=== PATIENT | male | born 1960 | race Hispanic/Latino ===

== ENCOUNTER 2019-06-04 01:36 | Emergency (ER) | payer SELFPAY ==
[2019-06-04] MEDS ORDERED: NA CHLORIDE 0.9% 1,000 ML ONE (03:30)
[2019-06-04 03:38] LABS: ALT/SGPT 53 U/L (12-78); AST/SGOT 31 U/L (15-37); Albumin 3.5 g/dL (3.4-5.0); Alkaline Phosphatase 126 U/L (45-117); BUN Blood Urea Nitrogen 9 mg/dL (7-18); Bicarbonate 27 mmol/L (21-32); Bilirubin Direct < 0.1 mg/dL (0-0.2); Bilirubin Total 0.4 mg/dL (0.2-1.0); Glucose Level 212 mg/dL (74-106); Lipase 76 U/L (73-393); Potassium 4.1 mmol/L (3.5-5.1); Protein, Total 6.7 g/dL (6.4-8.2); Sodium Level 139 mmol/L (136-145)
[2019-06-04 03:43] LABS: Absolute Lymphocytes (CBC) 2.9 K/uL (0.7-4.9); Basophils % 0.5 % (0-1.3); Hematocrit 42.5 % (39.6-49.0); Lymphocytes % 42.8 % (15.3-44.8); MPV 8.8 fL (7.6-11.3); RBC Red Blood Cell Count 4.57 M/uL (4.33-5.43)
--- NOTE | 2019-06-04 05:09 | EDPHYS ---
Physician Documentation [facility] Name: Carson Alvarenga Sr Age: 58 yrs Sex: Male : 1960 Arrival Date: 06/04/2019 Time: 02:27 Bed 2 Private MD: ED Physician Asael Bryan HPI: 06/04 03:13 This 58 yrs old Male presents to ER via Ambulatory with complaints of pkl Abdominal Pain. 03:13 The patient presents with abdominal pain in the upper abdomen. Onset: The pkl symptoms/episode began/occurred 3 week(s) ago. The symptoms do not radiate. Associated signs and symptoms: none. Historical: - Allergies: 02:48 No Known Allergies; bb - Home Meds: 02:48 metformin 500 mg Oral tab 1 tab 2 times per day [Active]; bb - PMHx: 02:48 Diabetes - NIDDM; bb - PSHx: 02:48 Appendectomy; Cholecystectomy; Cataract; bb - Immunization history:: Adult Immunizations up to date. - Social history:: Smoking status: Patient/guardian denies using tobacco, Patient uses alcohol, occasionally. - Ebola Screening: : No symptoms or risks identified at this time. ROS: 03:24 Eyes: Negative for injury, pain, redness, and discharge, ENT: Negative for injury, pkl pain, and discharge, Neck: Negative for injury, pain, and swelling, Cardiovascular: Negative for chest pain, palpitations, and edema, Respiratory: Negative for shortness of breath, cough, wheezing, and pleuritic chest pain. 03:24 Abdomen/GI: Positive for abdominal pain, of the right upper quadrant and left upper quadrant. 03:24 Back: Negative for acute changes. 03:24 : Negative for urinary symptoms. 03:24 MS/extremity: Negative for acute changes. 03:24 Skin: Negative for rash. 03:24 Neuro: Negative for altered mental status. Exam: 03:24 Head/Face: Normocephalic, atraumatic. Eyes: Pupils equal round and reactive to light, pkl extra-ocular motions intact. Lids and lashes normal. Conjunctiva and sclera are non-icteric and not injected. Cornea within normal limits. Periorbital areas with no swelling, redness, or edema. ENT: Nares patent. No nasal discharge, no septal abnormalities noted. Tympanic membranes are normal and external auditory canals are clear. Oropharynx with no redness, swelling, or masses, exudates, or evidence of obstruction, uvula midline. Mucous membranes moist. Neck: Trachea midline, no thyromegaly or masses palpated, and no cervical lymphadenopathy. Supple, full range of motion without nuchal rigidity, or vertebral point tenderness. No Meningismus. Chest/axilla: Normal chest wall appearance and motion. Nontender with no deformity. No lesions are appreciated. Cardiovascular: Regular rate and rhythm with a normal S1 and S2. No gallops, murmurs, or rubs. Normal PMI, no JVD. No pulse deficits. Respiratory: Lungs have equal breath sounds bilaterally, clear to auscultation and percussion. No rales, rhonchi or wheezes noted. No increased work of breathing, no retractions or nasal flaring. 03:24 Abdomen/GI: Bowel sounds: normal, Palpation: soft, mild abdominal tenderness, in the right upper quadrant and left upper quadrant. 03:24 Back: Exam negative for acute changes. 03:24 : Exam negative for acute changes. 03:24 Musculoskeletal/extremity: Exam is negative for acute changes. 03:24 Skin: Exam negative for rash. 03:24 Neuro: Orientation: is normal, Mentation: is normal, Cranial nerves: grossly normal, Motor: is normal. Vital Signs: 02:48 BP 139 / 78; Pulse 61; Resp 16 S; Temp 98.2(O); Pulse Ox 97% on R/A; Weight 84.82 kg bb (R); Height 5 ft. 8 in. (172.72 cm) (R); Pain 4/10; 03:30 BP 120 / 76; Pulse 59; Resp 18; Pulse Ox 98% on R/A; ea 04:38 BP 142 / 74; Pulse 60; Resp 18; Pulse Ox 98% on R/A; ea 05:30 BP 132 / 70; Pulse 60; Resp 18; Temp 97.6; Pulse Ox 98% on R/A; ea 02:48 Body Mass Index 28.43 (84.82 kg, 172.72 cm) bb MDM: 02:45 Patient medically screened. pkl 05:06 Data reviewed: vital signs, nurses notes, lab test result(s), radiologic studies, CT pkl scan. 06/04 02:55 Order name: Basic Metabolic Panel; Complete Time: 05:04 pkl 06/04 02:55 Order name: CBC with Diff; Complete Time: 05:04 pkl 06/04 02:55 Order name: Creatinine for Radiology; Complete Time: 05:04 pkl 06/04 02:55 Order name: Hepatic Function; Complete Time: 05:04 pkl 06/04 02:55 Order name: Lipase; Complete Time: 05:04 pkl 06/04 02:55 Order name: CT Abd/Pelvis - IV Contrast Only pkl 06/04 02:55 Order name: IV Saline Lock; Complete Time: 03:14 pkl 06/04 02:55 Order name: Labs collected and sent; Complete Time: 03:14 pkl Administered Medications: 03:32 Drug: NS 0.9% 1000 ml Route: IV; Rate: 125 ml/hr; Site: right antecubital; ea 05:33 Follow up: Response: No adverse reaction; IV Status: Completed infusion; IV Intake: ea 300ml 05:26 Drug: Tylenol #3 (300 mg-30 mg) 1 tablet {Note: RASS 0.} Route: PO; ea 05:34 Follow up: Response: No adverse reaction; RASS: Alert and Calm (0) ea Disposition: 06/04/19 05:07 Discharged to Home. Impression: Abdominal pain. - Condition is Stable. - Prescriptions for Protonix 40 mg Oral Tablet, Delayed Release (E.C.) - take 1 tablet by ORAL route once daily; 15 tablet. - Medication Reconciliation Form, Thank You Letter, Antibiotic Education, Prescription Opioid Use, Work release form form. - Follow up: Private Physician; When: 2 - 3 days; Reason: Re-evaluation by your physician. - Problem is new. - Symptoms have improved. Signatures: Dispatcher [employer] EDMS Asael Bryan MD MD pkl Ballard, Brenda RN RN Liz Jean, RN RN lp1 Stephanie Shelton RN RN ea Corrections: (The following items were deleted from the chart) 05:33 05:07 06/04/2019 05:07 Discharged to Home. Impression: Abdominal pain. Condition is ea Stable. Forms are Medication Reconciliation Form, Thank You Letter, Antibiotic Education, Prescription Opioid Use. Follow up: Private Physician; When: 2 - 3 days; Reason: Re-evaluation by your physician. Problem is new. Symptoms have improved. pkl
--- NOTE | 2019-06-04 05:09 | ER ---
Nurse's Notes [facility] Name: Carson Alvarenga Sr Age: 58 yrs Sex: Male : 1960 Arrival Date: 06/04/2019 Time: 02:27 Bed 2 Private MD: Diagnosis: Abdominal pain Presentation: 06/04 02:46 Presenting complaint: Patient states: he has been having right sided abdominal pain for bb 3 weeks denies vomiting or diarrhea states when he is sitting his abdomen "feels full" pain is constant and currently is 4/10 states he came in this morning because he can't sleep. Transition of care: patient was not received from another setting of care. Onset of symptoms was May 2019. Risk Assessment: Do you want to hurt yourself or someone else? Patient reports no desire to harm self or others. Initial Sepsis Screen: Does the patient meet any 2 criteria? No. Patient's initial sepsis screen is negative. Does the patient have a suspected source of infection? No. Patient's initial sepsis screen is negative. Care prior to arrival: None. 02:46 Method Of Arrival: Ambulatory bb 02:46 Acuity: TRINIDAD 3 bb Historical: - Allergies: 02:48 No Known Allergies; bb - Home Meds: 02:48 metformin 500 mg Oral tab 1 tab 2 times per day [Active]; bb - PMHx: 02:48 Diabetes - NIDDM; bb - PSHx: 02:48 Appendectomy; Cholecystectomy; Cataract; bb - Immunization history:: Adult Immunizations up to date. - Social history:: Smoking status: Patient/guardian denies using tobacco, Patient uses alcohol, occasionally. - Ebola Screening: : No symptoms or risks identified at this time. Screenin:32 Abuse screen: Denies threats or abuse. Nutritional screening: No deficits noted. ea Tuberculosis screening: No symptoms or risk factors identified. Fall Risk None identified. Assessment: 03:33 General: Appears distressed, Behavior is calm, cooperative, appropriate for age. Pain: ea Complains of pain in left upper quadrant and right upper quadrant. Pain: Pain began 3 weeks ago Is intermittent. Neuro: Level of Consciousness is awake, alert, obeys commands, Oriented to person, place, time, situation. Cardiovascular: Patient's skin is warm and dry. Respiratory: Airway is patent Respiratory effort is even, unlabored, Respiratory pattern is regular, symmetrical. GI: Abdomen is round Bowel sounds present X 4 quads. Abd is soft and non tender X 4 quads. Derm: Skin is pink, warm \\T\\ dry. 04:20 Reassessment: Patient and/or family updated on plan of care and expected duration. Pain ea level reassessed. Patient is alert, oriented x 3, equal unlabored respirations, skin warm/dry/pink. Awaiting on CT results. 05:07 Reassessment: Patient and/or family updated on plan of care and expected duration. Pain ea level reassessed. Patient is alert, oriented x 3, equal unlabored respirations, skin warm/dry/pink. Provider at bedside updating pt on plan of care. 05:29 Reassessment: Patient and/or family updated on plan of care and expected duration. Pain ea level reassessed. Patient is alert, oriented x 3, equal unlabored respirations, skin warm/dry/pink. Discharge instruction given to patient, verbalized the understanding of instruction. No s/s of pain or discomfort noted at this time. Pt left ED ambulatory tolerating well. Vital Signs: 02:48 BP 139 / 78; Pulse 61; Resp 16 S; Temp 98.2(O); Pulse Ox 97% on R/A; Weight 84.82 kg bb (R); Height 5 ft. 8 in. (172.72 cm) (R); Pain 4/10; 03:30 BP 120 / 76; Pulse 59; Resp 18; Pulse Ox 98% on R/A; ea 04:38 BP 142 / 74; Pulse 60; Resp 18; Pulse Ox 98% on R/A; ea 05:30 BP 132 / 70; Pulse 60; Resp 18; Temp 97.6; Pulse Ox 98% on R/A; ea 02:48 Body Mass Index 28.43 (84.82 kg, 172.72 cm) bb ED Course: 02:27 Patient arrived in ED. ds1 02:45 Asael Bryan MD is Attending Physician. pkl 02:48 Triage completed. bb 02:48 Arm band placed on Patient placed in an exam room, on a stretcher, on pulse oximetry. bb 03:04 Inserted saline lock: 20 gauge in right antecubital area, using aseptic technique. ea 03:32 Shelton, Stephanie, RN is Primary Nurse. ea 03:33 Patient has correct armband on for positive identification. Bed in low position. Call ea light in reach. Side rails up X 1. 04:07 CT Abd/Pelvis - IV Contrast Only In Process Unspecified. EDMS 05:32 No provider procedures requiring assistance completed. IV discontinued, intact, ea bleeding controlled, No redness/swelling at site. Pressure dressing applied. Administered Medications: 03:32 Drug: NS 0.9% 1000 ml Route: IV; Rate: 125 ml/hr; Site: right antecubital; ea 05:33 Follow up: Response: No adverse reaction; IV Status: Completed infusion; IV Intake: ea 300ml 05:26 Drug: Tylenol #3 (300 mg-30 mg) 1 tablet {Note: RASS 0.} Route: PO; ea 05:34 Follow up: Response: No adverse reaction; RASS: Alert and Calm (0) ea Intake: 05:33 IV: 300ml; Total: 300ml. ea Outcome: 05:07 Discharge ordered by . pkmonik 05:32 Discharged to home ambulatory. ea 05:32 Condition: stable 05:32 Discharge instructions given to patient, Instructed on discharge instructions, follow up and referral plans. medication usage, Demonstrated understanding of instructions, follow-up care, medications, Prescriptions given X 1. 05:33 Patient left the ED. ea Signatures: Dispatcher [employer] EDWA Asael Bryan MD MD pkl Sanford, Demi ds1 Juanita Magdaleno RN RN bb Antunez, Elena, RN RN ea
[2019-06-04] MEDS ORDERED: CODEINE 30MG/APAP 300MG TAB ONE (05:23)
[2019-06-04 06:38] VITALS: O2SAT 98
[2019-06-04 06:41] VITALS: BP 132/70; TEMP 97.6
--- NOTE | 2019-06-04 10:07 | RAD REPORT ---
EXAM DESCRIPTION: CT - Abdomen Pelvis W Contrast - 06/04/2019 6:53 am CLINICAL HISTORY: ABD PAIN COMPARISON: None. TECHNIQUE: CT ABDOMEN PELVIS WITH IV CONTRAST on 06/04/2019 2:55 AM CDT This exam was performed according to our departmental dose-optimization program, which includes autom ated exposure control, adjustment of the mA and/or kV according to patient size and/or use of iterati ve reconstruction technique. FINDINGS: Lower lungs are clear. Abdomen: Liver is fatty in attenuation. There is no biliary dilatation. Cholecystectomy was performed . There is a small fat-containing left internal hernia. The pancreas and spleen are normal in appeara nce. The adrenal glands and kidneys are unremarkable. Abdominal aorta is normal in course and caliber without aneurysm. There is no free air. There is no r etroperitoneal adenopathy. Pelvis: There is large amount of stool throughout the colon. Urinary bladder is unremarkable. There i s no free fluid. Appendix is not seen. Skeleton: There are no acute osseous findings. No suspicious bony lesions. IMPRESSION: Constipation. Electronically signed by: Garrett Wooten MD 06/04/2019 4:18 AM CDT Due to temporary technical issues with the PACS/Fluency reporting system, reports are being signed by the in house radiologist as a courtesy to ensure prompt reporting. The interpreting radiologist is f susanly responsible for the content of the report.
== END 2019-06-04 05:33 | disposition home or self-care (01) ==
LOC: ER 01:36
DX: R10.10 Upper abdominal pain, unspecified (principal); E11.9 Type 2 diabetes mellitus without complications
CPT/HCPCS: 36415; 74177; 80048; 80076; 83690; 85025; 96360; 96361; 99284; J7030; Q9967

== ENCOUNTER 2023-05-22 22:21 | Emergency (ER) | payer OTHER, SELFPAY ==
[2023-05-22] MEDS ORDERED: KETOROLAC 30 MG/ML INJ ONE (22:56)
[2023-05-22] MEDS ORDERED: CYCLOBENZAPRINE 10 MG TAB ONE (22:56)
[2023-05-22 23:28] LABS: Specific Gravity 1.029 (1.005-1.030); Urine Bacteria None Seen /HPF (<20); Urine Bilirubin NEGATIVE (Negative); Urine Blood Negative (Negative); Urine Clarity Clear (Clear); Urine Color Colorless (Yellow); Urine Glucose 4+ (Over) (Negative); Urine Protein NEGATIVE (Negative); Urine RBC None Seen /HPF (None Seen); Urine Urobilinogen Normal (Normal)
--- NOTE | 2023-05-22 23:45 | EDPHYS ---
Physician Documentation [facility] Name: Carson Alvarenga Sr Age: 62 yrs Sex: Male : 1960 Arrival Date: 05/22/2023 Time: 22:21 Bed 11 Private MD: ED Physician Michelle Lopez HPI: 05/22 22:51 This 62 yrs old Male presents to ER via Ambulatory with complaints of Back sp3 Pain. 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 Patient states that the pain is positional and sharp in nature. He denies dull pain or inner pain. He denies numbness or tingling distally in his lower extremities, intra-abdominal pain, pain in waves, gross hematuria, dysuria, prior UTI or kidney stone, nausea, vomiting, diarrhea, chest pain, upper back pain, headache, syncope, near syncope, chest pain, shortness of breath, or any other signs or symptoms on ROS at this time. Patient believes that this is muscular in origin.. Historical: - Allergies: 22:32 No Known Allergies; kl - Home Meds: 22:32 metformin 500 mg Oral tab 1 tab 2 times per day [Active]; kl - PMHx: 22:32 Diabetes - NIDDM; kl - PSHx: 22:32 Cholecystectomy; Appendectomy; kl - Immunization history:: Adult Immunizations not immunized. - Social history:: Smoking status: Patient denies any tobacco usage or history of. ROS: 22:53 Constitutional: Negative for fever, chills, and weight loss, Eyes: Negative for injury, sp3 pain, redness, and discharge, ENT: Negative for injury, pain, and discharge, Neck: Negative for injury, pain, and swelling, Cardiovascular: Negative for chest pain, palpitations, and edema, Respiratory: Negative for shortness of breath, cough, wheezing, and pleuritic chest pain, Abdomen/GI: Negative for abdominal pain, nausea, vomiting, diarrhea, and constipation, MS/Extremity: Negative for injury and deformity, Skin: Negative for injury, rash, and discoloration, Neuro: Negative for headache, weakness, numbness, tingling, and seizure, Psych: Negative for depression, anxiety, suicide ideation, homicidal ideation, and hallucinations, Allergy/Immunology: Negative for hives, rash, and allergies, Endocrine: Negative for neck swelling, polydipsia, polyuria, polyphagia, and marked weight changes, Hematologic/Lymphatic: Negative for swollen nodes, abnormal bleeding, and unusual bruising. 22:53 All other systems are negative. Exam: 22:53 Constitutional: This is a well developed, well nourished patient who is awake, alert, sp3 and in no acute distress. Head/Face: Normocephalic, atraumatic. Eyes: Pupils equal round and reactive to light, extra-ocular motions intact. Lids and lashes normal. Conjunctiva and sclera are non-icteric and not injected. Cornea within normal limits. Periorbital areas with no swelling, redness, or edema. Neck: Trachea midline, no thyromegaly or masses palpated, and no cervical lymphadenopathy. Supple, full range of motion without nuchal rigidity, or vertebral point tenderness. No Meningismus. Chest/axilla: Normal chest wall appearance and motion. Nontender with no deformity. No lesions are appreciated. Cardiovascular: Regular rate and rhythm with a normal S1 and S2. No gallops, murmurs, or rubs. Normal PMI, no JVD. No pulse deficits. Respiratory: Lungs have equal breath sounds bilaterally, clear to auscultation and percussion. No rales, rhonchi or wheezes noted. No increased work of breathing, no retractions or nasal flaring. Abdomen/GI: Soft, non-tender, with normal bowel sounds. No distension or tympany. No guarding or rebound. No evidence of tenderness throughout. Skin: Warm, dry with normal turgor. Normal color with no rashes, no lesions, and no evidence of cellulitis. MS/ Extremity: Pulses equal, no cyanosis. Neurovascular intact. Full, normal range of motion. Neuro: Awake and alert, GCS 15, oriented to person, place, time, and situation. Cranial nerves II-XII grossly intact. Motor strength 5/5 in all extremities. Sensory grossly intact. Cerebellar exam normal. Normal gait. Psych: Awake, alert, with orientation to person, place and time. Behavior, mood, and affect are within normal limits. 22:53 Back: Patient has pain to palpation in the point tenderness region in the right lower back just superiorly and medially to the pelvic crest. Pain is inducible upon movement and position. There is no CVA tenderness. Distal neurovascular exam is normal in both extremities. Pulses are equal. Anterior abdominal exam is normal.. Vital Signs: 22:31 BP 136 / 81; Pulse 64; Resp 18; Temp 97.9; Pulse Ox 98% on R/A; Weight 90.26 kg (R); kl Height 5 ft. 8 in. ; Pain 7/10; 23:55 BP 132 / 81; Pulse 68; Resp 17; Pulse Ox 99% on R/A; mb9 22:31 Body Mass Index 30.26 (90.26 kg, 172.72 cm) kl 22:31 Pain Scale: Adult kl MDM: 22:42 Patient medically screened. sp3 22:54 Data reviewed: vital signs, nurses notes. ED course: 62-year-old male with sp3 musculoskeletal type back pain on the right lower side. Clinically I am not highly suspicious for kidney stone, UTI/pyelonephritis, intestinal pathology, AAA, aortic dissection, sepsis, shock, lumbar radiculopathy, sciatica, any other critical findings. Symptoms most consistent with muscular strain. We will administer ketorolac IV intramuscularly and p.o. Flexeril. Urinalysis is pending and if negative we will safely discharge patient home. No x-rays or other radiology is indicated at this time.. 23:43 ED course: Patient's urine demonstrates no red blood cells or white blood cells however sp3 has 4+ ketones. Accu-Chek demonstrates 463 blood glucose. We will give 5 units of insulin subcutaneously prior to discharge. Patient feels better after medications and we will send him home on p.o. Flexeril and NSAID.. 05/22 22:43 Order name: UAM; Complete Time: 23:33 sp3 05/22 23:47 Order name: Glucose, Ancillary Testing EDMS 05/22 22:43 Order name: PO challenge; Complete Time: 22:49 sp3 Administered Medications: 22:49 Drug: Ketorolac IM 60 mg Route: IM; Site: right gluteus; mb9 23:13 Follow up: Response: No adverse reaction mb9 22:49 Drug: Cyclobenzaprine PO 10 mg Route: PO; mb9 23:13 Follow up: Response: No adverse reaction mb9 23:45 Drug: Insulin Regular Human Sub-Q 5 units {Co-Signature: pf1 (Tonya Izaguirre RN).} mb9 Route: Sub-Q; Site: right lower abdomen; 23:55 Follow up: Response: No adverse reaction mb9 Disposition Summary: 05/22/23 23:44 Discharge Ordered Location: Home sp3 Condition: Stable sp3 Diagnosis - Muscle strain, hyperglycemia, low back pain sp3 Followup: sp3 - With: Private Physician - When: Upon discharge from the Emergency Department - Reason: Recheck today's complaints Discharge Instructions: - Discharge Summary Sheet sp3 - Muscle Strain sp3 Forms: - Medication Reconciliation Form sp3 - Thank You Letter sp3 - Antibiotic Education sp3 - Prescription Opioid Use sp3 - Patient Portal Instructions sp3 - Leadership Thank You Letter sp3 Prescriptions: - Cyclobenzaprine 10 mg Oral Tablet - take 1 tablet by ORAL route every 8 hours As needed; 30 tablet; Refills: 0, sp3 Product Selection Permitted - Diclofenac Sodium 75 mg Oral Tablet Sustained Release - take 1 tablet by ORAL route 2 times per day; 30 tablet; Refills: 0, Product sp3 Selection Permitted Signatures: Dispatcher [employer] Ysabel Saldivar RN Michelle Randle MD MD sp3 Radha James RN RN mb9 Tonya Izaguirre RN pf1
--- NOTE | 2023-05-22 23:45 | ER ---
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 Coronavirus screen: Vaccine status: Patient reports receiving the 2nd dose of the covid vaccine. Ebola Screen: Patient negative for fever greater than or equal to 101.5 degrees Fahrenheit, and additional compatible Ebola Virus Disease symptoms. Initial Sepsis Screen: Does the patient meet any 2 criteria? No. Patient's initial sepsis screen is negative. Does the patient have a suspected source of infection? No. Patient's initial sepsis screen is negative. Risk Assessment: Do you want to hurt yourself or someone else? Patient reports no desire to harm self or others. Onset of symptoms was May 22, 2023 at 07:00. 22:31 Method Of Arrival: Ambulatory 22:31 Acuity: TRINIDAD 4 kl Triage Assessment: 22:33 General: Appears uncomfortable, Behavior is calm, cooperative. Pain: Complains of pain kl in right mid back and right low back Pain currently is 7 out of 10 on a pain scale. at worst was 10 out of 10 on a pain scale. Aggravated by increased activity. Historical: - Allergies: 22:32 No Known Allergies; kl - Home Meds: 22:32 metformin 500 mg Oral tab 1 tab 2 times per day [Active]; kl - PMHx: 22:32 Diabetes - NIDDM; kl - PSHx: 22:32 Cholecystectomy; Appendectomy; kl - Immunization history:: Adult Immunizations not immunized. - Social history:: Smoking status: Patient denies any tobacco usage or history of. Screenin:49 [facility] ED Fall Risk Assessment (Adult) History of falling in the last 3 months, mb9 including since admission No falls in past 3 months (0 pts) Confusion or Disorientation No (0 pts) Intoxicated or Sedated No (0 pts) Impaired Gait No (0 pts) Mobility Assist Device Used No (0 pt) Altered Elimination No (0 pt) Score/Fall Risk Level 0 - 2 = Low Risk Oriented to surroundings, Maintained a safe environment, Educated pt \T\ family on fall prevention, incl call for assistance when getting out of bed. Abuse screen: Denies threats or abuse. Nutritional screening: No deficits noted. Tuberculosis screening: No symptoms or risk factors identified. Assessment: 22:49 Reassessment: see triage assessment. mb9 23:55 Reassessment: Patient and/or family updated on plan of care and expected duration. Pain mb9 level reassessed. Patient is alert, oriented x 3, equal unlabored respirations, skin warm/dry/pink. Patient states feeling better. Patient states symptoms have improved. Vital Signs: 22:31 BP 136 / 81; Pulse 64; Resp 18; Temp 97.9; Pulse Ox 98% on R/A; Weight 90.26 kg (R); kl Height 5 ft. 8 in. ; Pain 7/10; 23:55 BP 132 / 81; Pulse 68; Resp 17; Pulse Ox 99% on R/A; mb9 22:31 Body Mass Index 30.26 (90.26 kg, 172.72 cm) kl 22:31 Pain Scale: Adult ED Course: 22:27 Patient arrived in ED. kj1 22:27 Michelle Lopez MD is Attending Physician. sp3 22:32 Triage completed. kl 22:44 Radha James, RN is Primary Nurse. mb9 22:49 Placed in gown. Bed in low position. Call light in reach. Side rails up X 1. Client mb9 placed on continuous cardiac and pulse oximetry monitoring. NIBP monitoring applied. 22:50 Arm band placed on. mb9 22:50 No provider procedures requiring assistance completed. mb9 23:13 UAM Sent. mb9 23:56 Patient did not have IV access during this emergency room visit. mb9 Administered Medications: 22:49 Drug: Ketorolac IM 60 mg Route: IM; Site: right gluteus; mb9 23:13 Follow up: Response: No adverse reaction mb9 22:49 Drug: Cyclobenzaprine PO 10 mg Route: PO; mb9 23:13 Follow up: Response: No adverse reaction mb9 23:45 Drug: Insulin Regular Human Sub-Q 5 units {Co-Signature: pf1 (Tonya Izaguirre RN).} mb9 Route: Sub-Q; Site: right lower abdomen; 23:55 Follow up: Response: No adverse reaction mb9 Medication: 22:49 VIS not applicable for this client. mb9 Outcome: 23:44 Discharge ordered by . sp3 23:55 Discharged to home ambulatory, with family. mb9 23:55 Condition: stable 23:55 Discharge instructions given to patient, family, Instructed on discharge instructions, follow up and referral plans. Demonstrated understanding of instructions, follow-up care, medications, Prescriptions given X 2. 23:56 Patient left the ED. mb9 Signatures: Ysabel Murray, RN RN Lucía Vu kj1 Michelle Lopez MD MD sp3 Radha James RN RN mb9 Tonya Izaguirre RN pf1
[2023-05-23] MEDS ORDERED: INSULIN -REGULAR HUMAN 50 UNIT/0.5 ML ML ONE (00:01)
[2023-05-23 00:06] VITALS: TEMP 97.9
[2023-05-23 00:08] VITALS: BP 132/81; O2SAT 99
== END 2023-05-22 23:56 | disposition home or self-care (01) ==
LOC: ER 22:21
DX: S39.012A Strain of muscle, fascia and tendon of lower back, initial encounter (principal); E11.65 Type 2 diabetes mellitus with hyperglycemia
CPT/HCPCS: 81001; 82947; 96372; 99284

== ENCOUNTER 2023-08-25 19:53 | Emergency (ER) | payer OTHER, SELFPAY ==
[2023-08-25] MEDS ORDERED: FAMOTIDINE 20 MG/2 ML VIAL IV ONE (20:45)
[2023-08-25 20:51] LABS: Absolute Lymphocytes (CBC) 2.5 K/uL (0.7-4.9); Hematocrit 40.8 % (39.6-49.0); Lymphocytes % 34.1 % (15.3-44.8); MCV 93.4 fL (80-100); MPV 8.6 fL (7.6-11.3); Platelets 157 thou/uL (152-406); RBC Red Blood Cell Count 4.37 M/uL (4.33-5.43)
[2023-08-25 21:05] LABS: Specific Gravity 1.025 (1.005-1.030); Urine Bilirubin NEGATIVE (Negative); Urine Blood Negative (Negative); Urine Clarity Clear (Clear); Urine Color Light-Yellow (Yellow); Urine Glucose 4+ (Over) (Negative); Urine Protein NEGATIVE (Negative); Urine Urobilinogen Normal (Normal)
[2023-08-25 21:25] LABS: Albumin 3.2 g/dL (3.4-5.0); Bilirubin Total 0.4 mg/dL (0.2-1.0); Protein, Total 6.6 g/dL (6.4-8.2)
[2023-08-25 21:26] LABS: Potassium 4.1 mEq/L (3.5-5.1)
--- NOTE | 2023-08-25 22:33 | RAD REPORT ---
EXAM DESCRIPTION: CT - Abdomen Pelvis W Contrast - 08/25/2023 9:48 pm CLINICAL HISTORY: Abdominal pain COMPARISON: 2018 TECHNIQUE: Computed axial tomography of the abdomen pelvis was obtained. 100 cc Isovue-300 was admin istered intravenously. Oral contrast was not requested which limits evaluation of bowel and appendix All CT scans are performed using dose optimization technique as appropriate and may include automated exposure control or mA/KV adjustment according to patient size. FINDINGS: Fatty liver. Cholecystectomy Spleen, pancreas, adrenals and right kidney unremarkable Small left renal cysts No evidence of diverticulitis. Prostate gland is moderately enlarged. Moderate left inguinal hernia contains fat IMPRESSION: No acute abnormality is displayed.
--- NOTE | 2023-08-25 22:39 | ER ---
Nurse's Notes [facility] Name: Carson Alvarenga Sr Age: 62 yrs Sex: Male : 1960 Arrival Date: 08/25/2023 Time: 19:53 Bed 6 Private MD: Diagnosis: Abdominal pain, unspecified;Disorder of prostate, unspecified Presentation: 08/25 20:16 Chief complaint: Patient states: abdominal pain onset 3-5 months ago. pt states that cm10 the pain has been getting worse over the last 3-4 days. Pt also reports nausea and diarrhea. Coronavirus screen: Vaccine status: Patient reports receiving the 2nd dose of the covid vaccine. Client denies travel out of the [place] in the last 14 days. Ebola Screen: Patient denies travel to an Ebola-affected area in the 21 days before illness onset. No symptoms or risks identified at this time. Initial Sepsis Screen: Does the patient meet any 2 criteria? No. Patient's initial sepsis screen is negative. Does the patient have a suspected source of infection? No. Patient's initial sepsis screen is negative. Risk Assessment: Do you want to hurt yourself or someone else? Patient reports no desire to harm self or others. Onset of symptoms was August 25, 2023. 20:16 Method Of Arrival: Ambulatory cm10 20:16 Acuity: TRINIDAD 3 cm10 Historical: - Allergies: 20:18 No Known Allergies; cm10 - PMHx: 20:18 Diabetes - NIDDM; cm10 - PSHx: 20:18 Appendectomy; Cholecystectomy; cm10 - Immunization history:: Adult Immunizations unknown. - Social history:: Smoking status: Patient denies any tobacco usage or history of. - Family history:: not pertinent. - Hospitalizations: : No recent hospitalization is reported. Screenin:41 [facility] ED Fall Risk Assessment (Adult) History of falling in the last 3 months, km8 including since admission No falls in past 3 months (0 pts) Confusion or Disorientation No (0 pts) Intoxicated or Sedated No (0 pts) Impaired Gait No (0 pts) Mobility Assist Device Used No (0 pt) Altered Elimination No (0 pt) Score/Fall Risk Level 0 - 2 = Low Risk Oriented to surroundings, Maintained a safe environment, Educated pt \T\ family on fall prevention, incl call for assistance when getting out of bed, Assessed \T\ reinforced patient's understanding of fall precautions. Abuse screen: Denies threats or abuse. Denies injuries from another. Nutritional screening: No deficits noted. Tuberculosis screening: No symptoms or risk factors identified. Assessment: 20:41 General: Appears in no apparent distress. comfortable, Behavior is calm, cooperative, km8 appropriate for age. Pain: Complains of pain in abdomen. Neuro: Level of Consciousness is awake, alert, obeys commands, Oriented to person, place, time, situation. Cardiovascular: Denies chest pain, shortness of breath, Capillary refill < 3 seconds Patient's skin is warm and dry. Respiratory: Airway is patent Respiratory effort is even, unlabored, Respiratory pattern is regular, symmetrical. GI: Abdomen is non-distended, Bowel sounds present X 4 quads. Abd is non tender Reports upper abdominal pain. : No signs and/or symptoms were reported regarding the genitourinary system. EENT: No signs and/or symptoms were reported regarding the EENT system. Derm: No signs and/or symptoms reported regarding the dermatologic system. Skin is intact, is healthy with good turgor, Skin is dry, Skin is pink, warm \T\ dry. normal, Skin temperature is warm. Musculoskeletal: No signs and/or symptoms reported regarding the musculoskeletal system. Range of motion: intact in all extremities. 22:43 Reassessment: No changes from previously documented assessment. Patient and/or family vc1 updated on plan of care and expected duration. Pain level reassessed. Patient is alert, oriented x 3, equal unlabored respirations, skin warm/dry/pink. Vital Signs: 20:16 BP 146 / 86; Pulse 68; Resp 18; Temp 97.5; Pulse Ox 100% on R/A; cm10 22:42 BP 128 / 72; Pulse 56; Resp 18; Pulse Ox 96% ; vc1 Hallett Coma Score: 20:41 Eye Response: spontaneous(4). Motor Response: obeys commands(6). Verbal Response: km8 oriented(5). Total: 15. ED Course: 19:57 Patient arrived in ED. jj6 20:00 Tim Oquendo MD is Attending Physician. rn 20:18 Triage completed. cm10 20:18 Arm band placed on Patient placed in an exam room, on a stretcher. cm10 20:41 Patient has correct armband on for positive identification. Client placed on continuous km8 cardiac and pulse oximetry monitoring. NIBP monitoring applied. Door closed. Lights dimmed. 20:41 Inserted saline lock: 20 gauge in right antecubital area, using aseptic technique. km8 Blood collected. 20:41 Patient maintains SpO2 saturation greater than 95% on room air. km8 21:50 CT Abd/Pelvis - IV Contrast Only In Process Unspecified. EDMS 22:51 Provided Education on: medication use. vc1 22:51 No provider procedures requiring assistance completed. IV discontinued, intact, vc1 bleeding controlled, No redness/swelling at site. Pressure dressing applied. Administered Medications: 20:40 Drug: Famotidine IVP 20 mg IVP once; dilute with 10 mL 0.9% NaCl; give over 2 minutes km8 Route: IVP; Site: right antecubital; 22:43 Follow up: Response: No adverse reaction; Marked relief of symptoms vc1 Medication: 22:51 VIS not applicable for this client. vc1 Outcome: 22:38 Discharge ordered by . rn 22:51 Discharged to home ambulatory, with significant other, vc1 22:51 Condition: good 22:51 Discharge instructions given to patient, Instructed on discharge instructions, follow up and referral plans. medication usage, Demonstrated understanding of instructions, follow-up care, medications, Prescriptions given X 1, 22:52 Patient left the ED. vc1 Signatures: Dispatcher [employer] EDMS Tim Oquendo MD MD rn Jeffries, Jennifer jjSue Harvey RN RN vc1 Kira Mondragon RN RN 10 Gely Kramer RN RN km8
--- NOTE | 2023-08-25 22:39 | EDPHYS ---
Physician Documentation [facility] Name: Carson Alvarenga Sr Age: 62 yrs Sex: Male : 1960 Arrival Date: 08/25/2023 Time: 19:53 Bed 6 Private MD: ED Physician Tim Oquendo HPI: 08/25 20:22 This 62 yrs old Male presents to ER via Ambulatory with complaints of rn Abdominal Swelling, PT STATED HE HAS BEEN HAVING ISSUES WITH GAS, BLOATING, ACID REFLUX. 20:22 The patient presents with abdominal pain in the periumbilical area. Onset: The rn symptoms/episode began/occurred 4 month(s) ago. The symptoms do not radiate. Associated signs and symptoms: Pertinent positives: nausea and vomiting, diarrhea, Pertinent negatives: blood in stools, testicular pain, vomiting blood. 20:23 The symptoms are described as achy, burning, crampy. Modifying factors: The symptoms rn are alleviated by nothing, the symptoms are aggravated by food. Severity of pain: At its worst the pain was mild in the emergency department the pain is unchanged. The patient has experienced similar episodes in the past. The patient has not recently seen a physician. Patient reports 3 to 4 months of mid abdominal burning, worse with food and water. Had 1 episode of vomiting today and has been having loose stool since this morning. No fever. No sick contacts. Has had cholecystectomy and appendectomy in the past. States this is first time he has been seen for this. No blood in stool. No cough/runny nose/sore throat/myalgias. Historical: - Allergies: 20:18 No Known Allergies; cm10 - PMHx: 20:18 Diabetes - NIDDM; cm10 - PSHx: 20:18 Appendectomy; Cholecystectomy; cm10 - Immunization history:: Adult Immunizations unknown. - Social history:: Smoking status: Patient denies any tobacco usage or history of. - Family history:: not pertinent. - Hospitalizations: : No recent hospitalization is reported. ROS: 20:23 Constitutional: Negative for fever, chills, and weight loss, Cardiovascular: Negative rn for chest pain, palpitations, and edema, Respiratory: Negative for shortness of breath, cough, wheezing, and pleuritic chest pain, Abdomen/GI: Positive for abdominal pain/nausea/vomiting/diarrhea Back: Negative for injury and pain, : Negative for injury, bleeding, discharge, and swelling, MS/Extremity: Negative for injury and deformity, Skin: Negative for injury, rash, and discoloration, Neuro: Negative for headache, weakness, numbness, tingling, and seizure, Exam: 20:23 Constitutional: This is a well developed, well nourished patient who is awake, alert, rn and in no acute distress. Ambulatory to room without distress or assistance Head/Face: Normocephalic, atraumatic. Cardiovascular: Regular rate and rhythm. No pulse deficits. Respiratory: No increased work of breathing, no retractions or nasal flaring. Abdomen/GI: Soft, mild mid abdominal tenderness, no distention, no guarding or peritoneal signs. MS/ Extremity: Pulses equal, no cyanosis. Neuro: Awake and alert, GCS 15 Vital Signs: 20:16 BP 146 / 86; Pulse 68; Resp 18; Temp 97.5; Pulse Ox 100% on R/A; cm10 22:42 BP 128 / 72; Pulse 56; Resp 18; Pulse Ox 96% ; vc1 Dawna Coma Score: 20:41 Eye Response: spontaneous(4). Motor Response: obeys commands(6). Verbal Response: km8 oriented(5). Total: 15. MDM: 20:00 Patient medically screened. rn 22:37 Differential diagnosis: bowel obstruction, diverticulitis, gastritis, gastroesophageal rn reflux disease, non-specific abd pain, pancreatitis, Peptic Ulcer Disease, Perf. Duodenal Ulcer, Perf. Gastric Ulcer, Prostatitis, urinary tract infection. Data reviewed: vital signs, nurses notes, lab test result(s), radiologic studies, CT scan, and as a result, I will discharge patient. Counseling: I had a detailed discussion with the patient and/or guardian regarding the historical points, exam findings, and any diagnostic results supporting the discharge/admit diagnosis, lab results, radiology results, the need for outpatient follow up, to return to the emergency department if symptoms worsen or persist or if there are any questions or concerns that arise at home. Special discussion: Based on the patient's Hx, exam, and Dx evaluation, there is no indication for emergent surgery or inpatient Tx. It is understood by the patient/guardian that if the Sx's persist or worsen they need to return immediately for re-evaluation. I discussed with the patient/guardian in detail that at this point there is no indication for admission to the hospital. It is understood, however, that if the symptoms persist or worsen the patient needs to return immediately for re-evaluation. Based on the history and exam findings, there is no indication for further emergent testing or inpatient evaluation. I discussed with the patient/guardian the need to see the primary care provider for further evaluation of the symptoms. I discussed with the patient/guardian the need to see the urologist for further evaluation of the symptoms. ED course: CT without acute findings. Shows enlarged prostate which is consistent with patient's report of over the last month not able to empty and weaker stream. Will place on Flomax and recommend urology follow-up. Patient with abdominal problems for months and no acute findings at this time. Will recommend antacids and GI follow-up at this time.. 22:37 ED course: I have personally reviewed all of the results, including but not limited to rn blood tests and imaging deemed necessary to safely discharge this patient at this time. All results given to and printed out for patient. I personally went over all the results with the patient and answered all questions. Patient will follow-up with PCP and or specialist as discussed. Return precautions given and understood.. 08/25 20:46 Order name: Comprehensive Metabolic Panel; Complete Time: 22:14 EDIN 08/25 20:46 Order name: Lipase; Complete Time: 22:14 EDIN 08/25 20:46 Order name: CBC with Automated Diff; Complete Time: 21:15 EDIN 08/25 20:46 Order name: Urinalysis w/ reflexes; Complete Time: 21:15 EDIN 08/25 21:25 Order name: CT Abd/Pelvis - IV Contrast Only; Complete Time: 22:34 rn 08/25 20:16 Order name: IV Saline Lock; Complete Time: 20:40 rn 08/25 20:16 Order name: Labs collected and sent; Complete Time: 20:40 rn Administered Medications: 20:40 Drug: Famotidine IVP 20 mg IVP once; dilute with 10 mL 0.9% NaCl; give over 2 minutes km8 Route: IVP; Site: right antecubital; 22:43 Follow up: Response: No adverse reaction; Marked relief of symptoms vc1 Disposition Summary: 08/25/23 22:38 Discharge Ordered Notes: Location: Home rn Problem: an ongoing problem rn Symptoms: have improved rn Condition: Stable rn Diagnosis - Abdominal pain, unspecified rn - Disorder of prostate, unspecified rn Followup: rn - With: Private Physician - When: As needed - Reason: Recheck today's complaints, Re-evaluation by your physician Discharge Instructions: - Discharge Summary Sheet rn - Abdominal Pain, Adult rn - Pain Without a Known Cause rn Forms: - Medication Reconciliation Form rn - Thank You Letter rn - Antibiotic ip attorney - Prescription Opioid Use rn - Patient Portal Instructions rn - Leadership Thank You Letter rn Prescriptions: - Flomax 0.4 mg Oral capsule - take 1 capsule ORAL route every 24 hours; 30 capsule; Refills: 0, Product rn Selection Permitted Signatures: Dispatcher [employer] EDMS Tim Oquendo MD MD rn Martinez, Clarissa RN RN cm10 Gely Kramer RN RN km8 Sue Rose RN vc1 Corrections: (The following items were deleted from the chart) 20:54 20:54 CBC+H.LAB.BRZ ordered. EDMS EDMS 20:54 20:54 COMPREHENSIVE METABOLIC PANEL+C.LAB.BRZ ordered. EDMS EDMS 20:54 20:54 LIPASE+C.LAB.BRZ ordered. EDMS EDMS 20:54 20:54 Urinalysis+U.LAB.BRZ ordered. EDMS EDMS 20:54 20:54 Abdomen Pelvis W Con+CT.RAD.BRZ ordered. EDMS EDMS 21:24 21:15 Abdomen Pelvis W Con+CT.RAD.BRZ ordered. EDMS EDMS
[2023-08-25 22:57] VITALS: TEMP 97.5
[2023-08-25 22:58] VITALS: BP 128/72; O2SAT 96
== END 2023-08-25 22:52 | disposition home or self-care (01) ==
LOC: ER 19:53
DX: R10.9 Unspecified abdominal pain (principal); N42.9 Disorder of prostate, unspecified; E11.9 Type 2 diabetes mellitus without complications
CPT/HCPCS: 36415; 74177; 80053; 81003; 83690; 85025; 96374; 99285; Q9967

== ENCOUNTER 2023-09-04 02:14 | Emergency (ER) | payer OTHER ==
[2023-09-04 02:51] LABS: SARS-CoV-2 Antigen Rapid Res Negative (Negative)
--- NOTE | 2023-09-04 03:04 | ER ---
Nurse's Notes [facility] Name: Carson Alvarenga Sr Age: 62 yrs Sex: Male : 1960 Arrival Date: 09/04/2023 Time: 02:14 Bed IW1 Private MD: Diagnosis: Nasal congestion;Cough Presentation: 09/04 02:23 Chief complaint: Patient states: cough congestion since yesterday. Coronavirus screen: kl Vaccine status: Patient reports receiving the 2nd dose of the covid vaccine. Ebola Screen: Patient negative for fever greater than or equal to 101.5 degrees Fahrenheit, and additional compatible Ebola Virus Disease symptoms. Initial Sepsis Screen: Does the patient meet any 2 criteria? No. Patient's initial sepsis screen is negative. Does the patient have a suspected source of infection? No. Patient's initial sepsis screen is negative. Risk Assessment: Do you want to hurt yourself or someone else? Patient reports no desire to harm self or others. Onset of symptoms was September 03, 2022. 02:23 Method Of Arrival: Ambulatory 02:23 Acuity: TRINIDAD 4 Triage Assessment: 02:26 General: Appears in no apparent distress. Behavior is calm, cooperative. Pain: Denies kl pain. EENT: Reports nasal congestion. Respiratory: Airway is patent Trachea midline Respiratory effort is even, unlabored, Respiratory pattern is regular, symmetrical, Breath sounds are clear bilaterally. Parent/caregiver reports the patient having cough that is non-productive. Historical: - Allergies: 02:25 No Known Allergies; kl - Home Meds: 02:25 metformin 500 mg Oral tab 1 tab 2 times per day [Active]; kl - PMHx: 02:25 Diabetes - NIDDM; kl - PSHx: 02:25 Appendectomy; Cholecystectomy; kl - Immunization history:: Pneumococcal vaccine is up to date, Flu vaccine is up to date. RSV 1 week ago. - Social history:: Smoking status: Patient denies any tobacco usage or history of. Screenin:13 [facility] ED Fall Risk Assessment (Adult) History of falling in the last 3 months, kl including since admission No falls in past 3 months (0 pts) Confusion or Disorientation No (0 pts) Intoxicated or Sedated No (0 pts) Impaired Gait No (0 pts) Mobility Assist Device Used No (0 pt) Altered Elimination No (0 pt) Score/Fall Risk Level 0 - 2 = Low Risk Oriented to surroundings, Maintained a safe environment. Abuse screen: Denies threats or abuse. Nutritional screening: No deficits noted. Tuberculosis screening: No symptoms or risk factors identified. Assessment: 03:12 Reassessment: Patient appears in no apparent distress at this time. Cardiovascular: No kl deficits noted. Respiratory: No deficits noted. Vital Signs: 02:23 BP 103 / 79; Pulse 77; Resp 18; Temp 98(TE); Pulse Ox 100% on R/A; Weight 89.81 kg (R); kl Height 5 ft. 8 in. ; Pain 0/10; 03:12 BP 110 / 65; Pulse 89; Resp 16; Pulse Ox 98% ; kl 02:23 Body Mass Index 30.11 (89.81 kg, 172.72 cm) kl 02:23 Pain Scale: Adult kl ED Course: 02:19 Patient arrived in ED. jj6 02:20 Anand Richards DO is Attending Physician. ms3 02:25 Triage completed. kl 03:04 Ayad Lopez DO is Referral Physician. ms3 03:14 Patient has correct armband on for positive identification. kl 03:14 Provided Education on: respiratory precautions. kl 03:14 No provider procedures requiring assistance completed. Patient did not have IV access kl during this emergency room visit. Administered Medications: No medications were administered Medication: 03:13 VIS not applicable for this client. kl Outcome: 03:04 Discharge ordered by . ms3 03:15 Discharged to home ambulatory, kl 03:15 Condition: stable 03:15 Discharge instructions given to patient, Instructed on discharge instructions, follow up and referral plans. medication usage, Demonstrated understanding of instructions, follow-up care, medications, Prescriptions given X 1, 03:16 Patient left the ED. kl Signatures: Ysabel Murray RN RN Anand Richards DO DO ms3 Carly Brown jj6
--- NOTE | 2023-09-04 03:05 | EDPHYS ---
Physician Documentation [facility] Name: Carson Alvarenga Sr Age: 62 yrs Sex: Male : 1960 Arrival Date: 09/04/2023 Time: 02:14 Bed IW1 Private MD: ED Physician Anand Richards HPI: 09/04 02:47 This 62 yrs old Male presents to ER via Ambulatory with complaints of Cough, ms3 Congestion. 02:47 62-year-old male with past medical history of diabetes presents to the emergency ms3 department for congestion and cough that began yesterday. Patient states he has been coughing all night and unable to sleep. Patient denies pain. Patient states both his granddaughters are sick however they have fevers and chills.. Historical: - Allergies: 02:25 No Known Allergies; kl - Home Meds: 02:25 metformin 500 mg Oral tab 1 tab 2 times per day [Active]; kl - PMHx: 02:25 Diabetes - NIDDM; kl - PSHx: 02:25 Appendectomy; Cholecystectomy; kl - Immunization history:: Pneumococcal vaccine is up to date, Flu vaccine is up to date. RSV 1 week ago. - Social history:: Smoking status: Patient denies any tobacco usage or history of. ROS: 02:47 Constitutional: Negative for fever, and chills. Cardiovascular: Negative for chest ms3 pain, and palpitations. Abdomen/GI: Negative for abdominal pain, nausea, vomiting, diarrhea, and constipation, MS/Extremity: Negative for injury and deformity, Skin: Negative for injury, rash, and discoloration, 02:47 ENT: Positive for rhinorrhea, sinus congestion, 02:47 Respiratory: Positive for cough, 02:47 All other systems are negative, Exam: 02:47 Constitutional: This is a well developed, well nourished patient who is awake, alert, ms3 and in no acute distress. Head/Face: Normocephalic, atraumatic. Chest/axilla: Normal chest wall appearance and motion. Nontender with no deformity. Cardiovascular: Regular rate and rhythm with a normal S1 and S2. No gallops, murmurs, or rubs. Normal PMI, no JVD. No pulse deficits. Respiratory: Lungs have equal breath sounds bilaterally, clear to auscultation and percussion. No rales, rhonchi or wheezes noted. No increased work of breathing, no retractions or nasal flaring. Abdomen/GI: Soft, non-tender, with normal bowel sounds. No distension or tympany. No guarding or rebound. No evidence of tenderness throughout. Skin: Warm, dry with normal turgor. Normal color with no rashes, no lesions, and no evidence of cellulitis. MS/ Extremity: Pulses equal, no cyanosis. Neurovascular intact. Full, normal range of motion. Vital Signs: 02:23 BP 103 / 79; Pulse 77; Resp 18; Temp 98(TE); Pulse Ox 100% on R/A; Weight 89.81 kg (R); kl Height 5 ft. 8 in. ; Pain 0/10; 03:12 BP 110 / 65; Pulse 89; Resp 16; Pulse Ox 98% ; kl 02:23 Body Mass Index 30.11 (89.81 kg, 172.72 cm) kl 02:23 Pain Scale: Adult kl MDM: 02:27 Patient medically screened. ms3 02:47 Differential Diagnosis: Bronchitis Influenza Upper Respiratory Infection. ms3 04 02:27 Order name: Flu; Complete Time: 03:03 ms3 12 02:27 Order name: SARS RAPID; Complete Time: 03:03 ms3 Administered Medications: No medications were administered Disposition Summary: 09/04/23 03:04 Discharge Ordered Notes: Location: Home ms3 Condition: Stable ms3 Diagnosis - Nasal congestion ms3 - Cough ms3 Followup: ms3 - With: Ayad Lopez DO - When: 2 - 3 days - Reason: Recheck today's complaints Discharge Instructions: - Discharge Summary Sheet ms3 - Cough, Adult, [id number] ms3 - Cough, Adult ms3 Forms: - Medication Reconciliation Form ms3 - Thank You Letter ms3 - Antibiotic Education ms3 - Prescription Opioid Use ms3 - Patient Portal Instructions ms3 - Leadership Thank You Letter ms3 Prescriptions: - benzonatate 200 mg Oral capsule - take 1 capsule ORAL route 3 times per day as needed; 20 capsule; Refills: 0, ms3 Product Selection Permitted Signatures: Dispatcher [employer] Ysabel Saldivar RN RN kl Sims, Marcus, DO DO ms3
[2023-09-04 04:04] VITALS: TEMP 98
[2023-09-04 04:06] VITALS: BP 110/65; O2SAT 98
== END 2023-09-04 03:16 | disposition home or self-care (01) ==
LOC: ER 02:14
DX: R09.81 Nasal congestion (principal); R05.9 Cough, unspecified; E11.9 Type 2 diabetes mellitus without complications; Z11.52 Encounter for screening for COVID-19
CPT/HCPCS: 36415; 87804; 87811; 99283

== ENCOUNTER 2024-03-21 00:52 | Observation (INO) | payer OTHER ==
--- OUTSIDE RECORDS SUMMARY | 2024-03-21 00:56 | XMS REPORT | Continuity of Care Document ---
Author Name Unknown Address [address] [facility] [place] [address] [facility] thconnect Address [address] [facility] [address] [place] [address] Care Team Providers Care Green Chain Off Bearer Name Role Phone Whitaker [facility] Massiel Primary Care Physician KEEGAN SEARS Attending Clinician Unavailable JESSIE BASSETT Attending Clinician MARY ANNE Auguste Attending Clinician Unavailable Mary Anne Bello MD Attending Clinician ISSA STRINGER Attending Clinician Unavailable MARY ANNE BELLO Admitting Clinician Unavailable Payers Payer Name Policy Type Policy Number Effective Date Expirati on Date Source [facility] JAYY MARSHALL COP FOCUS 9 [id number] 2024 00:00:00 [facility] [id number] 2024 00:00:00 Allergies, Adverse Reactions, Alerts Allergy Name Allergy Type Status Severity Reaction(s) Onset Date Inactive Date Treating Clinician Comments Source NO KNOWN ALLERGIE S Drug Class Active [facility] Social History Social Habit Start Date Stop Date Quantity Comments Source Sexual orientation [facility] Sex assigned at 1960 00:00:00 1960 00:00:00 [facility] Smoking Status Start Date Stop Date Source Tobacco smoking consumption unknown [facility] Medications Ordered Medication Name Filled Medication Name Start Date Stop Date Current Medication? Ordering Clinician Indication Dosage Frequency Signature (SIG) Comments Components Source benzonatate (TESSALON PERLES) capsule 100 mg 03-16 00:00: 00 03-16 11:59 :00 Yes 100mg 100 mg, Oral, ONCE, 1 dose, On Mon03/15/24 at 1900, Routine [facility] amoxicillin -clavulanat e (AUGMENTIN) 875-125 mg per tablet 1 tablet 03-16 00:00: 00 03-16 11:59 :00 Yes 1{tbl} 1 tablet, Oral, ONCE, 1 dose, On Mon03/15/24 at 1900, Routine, Reason for Anti-Infec tive: Documented Infection, Documented Infection Site: Respirator y, Duration of Therapy: Once (ED) [facility] albuterol 90 mcg/actuati on inhaler 03-15 00:00: 00 Yes [id number] 2{puff} Inhale 2 Puffs every 4 (four) hours as needed for Wheezing or Shortness of Breath. [facility] benzonatate 100 mg capsule 03-15 00:00: 00 Yes [id number] 100mg Take 1 capsule by mouth 3 (three) times daily as needed for Cough. [facility] amoxicillin -clavulanat e 875-125 mg per tablet 03-15 00:00: 00 03-23 04:59 :00 Yes [id number] 1{tbl} Take 1 tablet by mouth every 12 (twelve) hours for 7 days. [facility] APPLY 1 APPLICATION ON THE SKIN TWICE A DAY APPLY TO AFFECTED AREAS 11-22 00:00: 00 02-08 00:00 :00 No 1 Dante Arevalo TAKE 1 TABLET DAILY. 11-22 00:00: 00 02-08 00:00 :00 No 20 Dante Arevalo TAKE 1 TABLET DAILY. 11-22 00:00: 00 02-08 00:00 :00 No 10 Dante Arevalo TAKE 1 TABLET TWICE DAILY WITH MEALS - 00:00: 00 Yes 850 Dante Arevalo TAKE 1 TABLET DAILY. 1- 00:00: 00 Yes 100 Dante Arevalo TAKE 1 TABLET EVERY 8 HOURS NEEDED. - 00:00: 00 02-08 00:00 :00 No 500 Dante Arevalo TAKE 1 TABLET BY MOUTH TWICE DAILY WITH MEALS 1-30 00:00: 00 Yes Dante Arevalo TAKE 1 CAPSULE BY MOUTH THREE TIMES A DAY NEEDED 2022-10 2-04 00:00: 00 Yes Dante Arevalo TAKE ONE CAPSULE BY MOUTH EVERY 24 HOURS 2022-10 1-24 00:00: 00 Yes Dante Arevalo TAKE 1 TABLET ONCE DAILY BEFORE MEALS 12-22 00:00: 00 02-08 00:00 :00 No 40 Dante Arevalo INSTILL 1 DROP INTO AFFECTED EYE(S) EVERY 3 HOURS WHILE AWAKE FOR 10 DAYS 2021-10 0-03 00:00: 00 02-08 00:00 :00 No Dante Arevalo Dose Unknown 0 6-02 00:00: 00 Yes Dante Arevalo Dose Unknown 0 4-18 00:00: 00 Yes Dante Arevalo Dose Unknown 0 4-18 00:00: 00 Yes Dante Arevalo Januvia 100 mg tablet 0 4-15 00:00: 00 Yes 1mg Dante Arevalo terbinafine HCl 250 mg tablet 0 4-15 00:00: 00 Yes 1mg Dante Arevalo metformin 850 mg tablet 0 4-15 00:00: 00 Yes 1mg Dante Arevalo Dose Unknown 0 4-06 00:00: 00 Yes Dante Arevalo Dose Unknown 0 4-04 00:00: 00 Yes Dante Arevalo Dose Unknown 0 4-02 00:00: 00 Yes Dante Arevalo Dose Unknown 0 4-01 00:00: 00 Yes Dante Arevalo Dose Unknown 0 3-31 00:00: 00 Yes Dante Arevalo Vital Signs Vital Name Observation Time Observation Value Comments S ourkade Systolic blood pressure 2024-03-15 21:37:00 129 mm[Hg] [facility] [place] [place] Diastolic blood pressure 2024-03-15 21:37:00 86 mm[Hg] [place] [facility] [place] [place] Heart rate 2024-03-15 21:37:00 74 /min [facility] Body temperature 2024-03-15 21:37:00 37.22 Ynes [facility] Respiratory rate 2024-03-15 21:37:00 16 /min [facility] Body height 2024-03-15 21:37:00 172.7 cm [facility] Body weight 2024-03-15 21:37:00 89.812 kg [facility] BMI 2024-03-15 21:37:00 30.11 kg/m2 [facility] Oxygen saturation in Arterial blood by Pulse oximetry 2024-03-15 21:37:00 100 /min [place] [facility] [place] [place] Body Temperature 2024-02-09 16:10:00 98.20 degrees Dante F Mickey Heart Rate 2024-02-09 16:10:00 88.00 /min Daphne en F Mickey Respiratory Rate 2024-02-09 16:10:00 18.00 /min Dante F Mickey BP Systolic 2024-02-09 16:10:00 131 mm[Hg] Step hen F Mickey BP Diastolic 2024-02-09 16:10:00 81 mm[Hg] Jeffry phen F Mickey Weight Measured 2024-02-09 16:10:00 198.20 pounds Dante F Mickey Height Measured 2024-02-09 16:10:00 68.00 inches Dante F Mickey BP Systolic 2023-11-22 15:41:00 142 mm[Hg] Step hen F Mickey BP Diastolic 2023-11-22 15:41:00 78 mm[Hg] Jeffry phen F Mickey Weight Measured 2023-11-22 15:41:00 200.60 pounds Dante F Mickey Height Measured 2023-11-22 15:41:00 68.00 inches Dante F Mickey Body Temperature 2023-11-22 15:41:00 98.20 degrees Dante F Mickey Heart Rate 2023-11-22 15:41:00 67.00 /min Daphne en F Mickey Respiratory Rate 2023-11-22 15:41:00 17.00 /min Dante F Mickey BP Systolic 2023-10-31 18:05:00 156 mm[Hg] Step hen F Mickey BP Diastolic 2023-10-31 18:05:00 81 mm[Hg] Jeffry phen F Mickey Weight Measured 2023-10-31 18:05:00 203.80 pounds Dante F Mickey Height Measured 2023-10-31 18:05:00 68.00 inches Dante F Mickey Body Temperature 2023-10-31 18:05:00 97.60 degrees Dante F Mickey Heart Rate 2023-10-31 18:05:00 71.00 /min Daphne en F Mickey Respiratory Rate 2023-10-31 18:05:00 Dante F Mickey BP Systolic 2023-10-31 17:49:00 156 mm[Hg] Step hen F Mickey BP Diastolic 2023-10-31 17:49:00 81 mm[Hg] Jeffry phen F Mickey Weight Measured 2023-10-31 17:49:00 203.80 pounds Dante F Mickey Height Measured 2023-10-31 17:49:00 68.00 inches Dante F Mickey Body Temperature 2023-10-31 17:49:00 97.60 degrees Dante F Mickey Heart Rate 2023-10-31 17:49:00 71.00 /min Daphne en F Mickey Respiratory Rate 2023-10-31 17:49:00 Dante F Mickey BP Systolic 2022-12-22 15:03:00 146 mm[Hg] Step hen F Mickey BP Diastolic 2022-12-22 15:03:00 83 mm[Hg] Jeffry phen F Mickey Weight Measured 2022-12-22 15:03:00 198.60 pounds Dante F Mickey Height Measured 2022-12-22 15:03:00 68.00 inches Dante F Mickey Body Temperature 2022-12-22 15:03:00 98.20 degrees Dante F Mickey Heart Rate 2022-12-22 15:03:00 86.00 /min Daphne en F Mickey Respiratory Rate 2022-12-22 15:03:00 18.00 /min Dante F Mickey BP Systolic 2022-01-14 17:21:00 139 mm[Hg] Step hen F Mickey BP Diastolic 2022-01-14 17:21:00 79 mm[Hg] Jeffry phen F Mickey Weight Measured 2022-01-14 17:21:00 201.40 pounds Dante Arevalo Height Measured 2022-01-14 17:21:00 68.00 inches Dante F Mickey Body Temperature 2022-01-14 17:21:00 98.30 degrees Dante F Mickey Heart Rate 2022-01-14 17:21:00 66.00 /min Daphne en F Mickey Respiratory Rate 2022-01-14 17:21:00 16.00 /min Dante F Mickey Weight Measured 2021-12-30 16:09:00 204.40 pounds Dante F Mickey Height Measured 2021-12-30 16:09:00 68.00 inches Dante F Mickey Body Temperature 2021-12-30 16:09:00 98.10 degrees Dante F Mickey Heart Rate 2021-12-30 16:09:00 74.00 /min Daphne en F Mickey Respiratory Rate 2021-12-30 16:09:00 16.00 /min Dante F Mickey BP Systolic 2021-12-30 16:09:00 144 mm[Hg] Step hen F Mickey BP Diastolic 2021-12-30 16:09:00 76 mm[Hg] Jeffry phen F Mickey Procedures Procedure Date / Time Performed Performing Clinicia n Source XR CHEST 2 VW 2024-03-15 22:20:54 Mary Anne Bello [facility] RAPID STREP SCREEN FOR GROUP A 2024-03-15 22:03:00 Mary Anne Bello [facility] INFLUENZA A/B RSV COVID NAAT 2024-03-15 22:03:00 Mary Anne Bello [facility] Encounters Start Date/Time End Date/Time Encounter Type Admission Type Attending [facility] Care Department Encounter ID Source 2024-05-24 14:00:00 2024-05-24 14:00:00 Outpatient KEEGAN SEARS [id number] Nohelia Salas 2024-03-22 16:30:00 2024-03-22 16:30:00 Outpatient JESSIE BASSETT [id number] Nohelia Salas 2024-03-15 16:38:00 2024-03-15 18:30:00 Emergency X MARY ANNE BELLO [facility] [id number] [facility] 2024-03-15 16:38:00 2024-03-15 18:30:00 Emergency Mary Anne Bello [facility] [id number] [facility] 2024-02-21 00:00:00 2024-02-21 00:00:00 Outpatient ISSA STRINGER NOHELIA [id number] [facility] 2024-02-21 00:00:00 2024-02-21 00:00:00 Outpatient KEEGAN SEARS NOHELIA TAYLOR [id number] [facility] 2024-02-20 00:00:00 2024-02-20 00:00:00 Outpatient ISSA STRINGERBLU TAYLOR [id number] [facility] 2024-02-09 16:05:52 2024-02-09 16:05:52 Outpatient [facility] [id number] Dante Arevalo 2024-02-09 00:00:00 2024-02-09 00:00:00 Outpatient Visit [facility] [id number] Dante Rocha Mickey 2023-10-31 17:42:40 2023-10-31 17:42:40 Outpatient [facility] [id number] Dante Rocha Mickey 2022-12-22 14:52:49 2022-12-22 14:52:49 Outpatient [facility] [id number] Dante Rocha Mickey Results Test Description Test Time Test Comments Results Resul t Comments Source XR CHEST 2 VW 2024-03-15 23:25:59 Exam: XR CHEST 2 VW, 03/15/2024 5:00 PM. Ordering Physician: MARY ANNE BELLO. History: cough . Technique: Two views of the chest. Comparison: None. 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 No pneumothorax or effusion. Normal size of thecardiac silhouette. No acute osseous finding. [facility] Dante Josefina MickeyALBUMIN/CREATININE RATIO, URINE, [id number] 03:15:45* Test Item Value Reference Range Interpretation Comme nts CREATININE, URINE, RANDOM (test code = 2071) 85.9 MG/DL NOT ESTAB ALBUMIN, URINE, RANDOM (test code = 62620) 0.4 MG/DL NOT ESTAB CALC ALBUMIN/CREAT, RND (test code = 53349) 5 MG/G <30 Note: Albumin/Creatinine ratio reference interval reflects ADA and NKF guidelines. MICROALBUMIN/CREATININE, RANDOM AND [id number] 00:00:00* Test Item Value Reference Range Interpretation Comme nts CREATININE, URINE, RANDOM (t est code = 2071) 85.9 MG/DL ALBUMIN, URINE, RANDOM (test code = 48123) 0.4 MG/DL CALC ALBUMIN/CREAT, RND (lynsey t code = 08669) 5 MG/G Dante F MickeyCOMPREHENSIVE METABOLIC [id number] 02:00:22* Test Item Value Reference Range Interpretation Comme nts GLUCOSE (test code = 2216) 193 MG/DL 70-99 H BUN (test code = 2207) 9 MG/DL 8-23 CREATININE (test code = 2214) 0.73 MG/DL 0.80-1.40 L eGFR (2020 CKD-EPI) (test code = 81667) 104 ML/MIN/1.73 >60 CALC BUN/CREAT (test code = 2235) 12 RATIO 6-28 SODIUM (test code = 2231) 139 MEQ/L 133-146 POTASSIUM (test code = 2228) 4.8 MEQ/L 3.5-5.4 CHLORIDE (test code = 2215) 104 MEQ/L 95-107 CARBON DIOXIDE (test code = 2206) 21 MEQ/L 19-31 CALCIUM (test code = 2209) 10.7 MG/DL 8.5-10.5 H PROTEIN, TOTAL (test code = 222) 6.8 G/DL 6.1-8.3 ALBUMIN (test code = 1) 4.3 G/DL 3.5-5.2 CALC GLOBULIN (test code = 2240) 2.5 G/DL 1.9-3.7 CALC A/G RATIO (test code = 2234) 1.7 RATIO 1.0-2.6 BILIRUBIN, TOTAL (test code = 2206) 0.3 MG/DL See_Comment [Automated me ssage] The system which generated this result transmitted reference range: <=1.2. The reference range was not used to interpret this result as normal/abnormal. ALKALINE PHOSPHATASE (test code = 2204) 130 U/L 40-123 H AST (test code = 2218) 29 U/L 9-50 ALT (test code = 2219) 42 U/L 5-50 LIPID [id number] 02:00:22* Test Item Value Reference Range Interpretation Comme nts CHOLESTEROL (test code = 2210) 228 MG/DL <200 H TRIGLYCERIDES (test code = 2232) 817 MG/DL <150 H HDL CHOLESTEROL (test code = 2220) 26 MG/DL >39 L CALC LDL CHOL (test code = 2237) (NOTE) MG/DL <100 UNABLE TO CALCUL ATE A VALID LDL CHOLESTEROL WHEN THE TRIGLYCERIDEVALUE IS GREATER THAN 400 MG/DL. NOTE: CALCULATED LDL IS BASED ON NANETTE-BULL METHOD WHICHINCLUDES ADJUSTABLE TRIGLYCERIDE:VLDL CHOLESTEROL RATIO.THIS FACTOR VARIES BY MEASURED TRIGLYCERIDE AND NON-HDLCHOLESTEROL CONCENTRATIONS WITH INCREASED CALCULATED LDL SEENIN HIGHER TRIGLYCERIDE OR LOWER NON-HDL SPECIMENS. FOR MOREINFORMATION, SEE CLIENT ANNOUNCEMENT AT [email or web address] CalcLDL-C RISK RATIO LDL/HDL (test code = 2238) 3.58 RATIO <3.55 H UNABLE TO TREVOR CULATE COMPREHENSIVE METABOLIC [id number] 00:00:00* Test Item Value Reference Range Interpretation Comme nts GLUCOSE (test code = 7) 193 MG/DL BUN (test code = 8) 9 MG/DL CREATININE (test code = 2214) 0.73 MG/DL eGFR (2020 CKD-EPI) (test code = 37026) 104 ML/MIN/1.73 CALC BUN/CREAT (test code = 2235) 12 RATIO SODIUM (test code = 223) 139 MEQ/L POTASSIUM (test code = 2228) 4.8 MEQ/L CHLORIDE (test code = 2215) 104 MEQ/L CARBON DIOXIDE (test code = 2206) 21 MEQ/L CALCIUM (test code = 2209) 10.7 MG/DL PROTEIN, TOTAL (test code = 222) 6.8 G/DL ALBUMIN (test code = 2201) 4.3 G/DL CALC GLOBULIN (test code = 2240) 2.5 G/DL CALC A/G RATIO (test code = 2234) 1.7 RATIO BILIRUBIN, TOTAL (test code = 2207) 0.3 MG/DL ALKALINE PHOSPHATASE (test code = 2204) 130 U/L AST (test code = 2218) 29 U/L ALT (test code = 2219) 42 U/L Dante ArevaloLIPID [id number] 00:00:00* Test Item Value Reference Range Interpretation Comme nts CHOLESTEROL (test code = 2210) 228 MG/DL TRIGLYCERIDES (test code = 2232) 817 MG/DL HDL CHOLESTEROL (test code = 2220) 26 MG/DL CALC LDL CHOL (test code = 2237) (NOTE) MG/DL RISK RATIO LDL/HDL (test cod e = 2238) 3.58 RATIO Dante ArevaloHEMOGLOBIN [id number] 05:35:47* Test Item Value Reference Range Interpretation Comme nts HEMOGLOBIN A1c (test code = 63816) 10.0 % 4.2-5.6 H [employer] GUIDELINES FOR HGB A1C: PREDIABETES/INCREASED RISK . . . . . . . 5.7-6.4% DIAGNOSIS OF DIABETES . . . . . . . . . >=6.5% WITH CONFIRMATION OR APPROPRIATE SYMPTOMS NOTE: ASSAY MAY BE AFFECTED BY HEMOGLOBINOPATHIES (SICKLE CELL ANEMIA, S-C DISEASE, OTHERS) OR ARTIFICIALLY LOWERED BY DECREASED RED CELL SURVIVAL (HEMOLYTIC ANEMIAS, BLOOD LOSS, ETC.). CONSIDER ALTERNATE TESTING OR LABORATORY CONSULTATION. UNLESS OTHERWISE INDICATED, ALL TESTING PERFORMED [id number] [address] [place] [address] TACTICAL RESPONSE GROUP OFFICER: ARIES ALVAREZ M.D. CLIA NUMBER [id number] [facility] [place] [id number] HEMOGLOBIN [id number] 00:00:00* Test Item Value Reference Range Interpretation Comme nts HEMOGLOBIN A1c (test code = 66090) 10.0 % Dante ArevaloSARS-CoV-2 (COVID-19) by RT-PCR (HIGH RISK)2020-10-22 00:00:00* Test Item Value Reference Range Interpretation Comme nts SARS-CoV-2 INTERPRETATION (t est code = 67791) NEGATIVE SOURCE (test code = 70897) NOT SPECIFIED Dante Arevalo Notes Date/Time Note Provider Source 2024-03-15 18:18:32 [id number]:18:32 Pt given printed and verbal discharge instructions regarding bronchitis, self-care for colds, encouraged hydration,3 Prescriptions providedDiscussed ibuprofen and to take with food to avoid GI distress.Discussed antibiotic therapy and to take until all completed unless adverse reaction occurs - if occurs, discontinue medication and follow up with pcp/seek medical attentionPt verbalized understanding of instructions, pt awake alert oriented, resp reg unlabored, skin w/d, color appropriate for race, moves all ext well,pt encouraged to follow up with pcpAdvised to seek medical attention for new/prolonged/worsening of symptoms,No adverse reaction to meds given in ER noted upon dischargeAwake, alert oriented, resp reg unlabored, skin w/d, pt leaving amb with steady gait, in no apparent distress, 46613-6Hzxqpjbzj department YcvbEV0521-06-40M35:19:15[facility] [id number] 879|[id number] for patient hrrb93468-6ExytJTRAKIKYRLVDyqmoretr C-CDA narrative [id number] M Hayes RN[address] Nm[id number] JFYRUYIRCEACEZHHFR4533-67-13Z09:19:151.2 .840.309220.1.72.3.15|1.2.840.604353.1.1 [id number] Frieda Burden RN [facility] 2024-03-15 16:36:08 4313-53-02V01:36:08 CC: patient presents to the ER with complaints of sore throat and body aches that began last week. States he has been taking tylenol for pain without relief, states he went to [place] and was diagnosed with a viral infection.PMHx: noneAwake, alert, oriented, resp reg unlabored, skin warm and dry, color appropriate for race, moves all ext without difficulty, amb without assistance.Appears in no distress. 06631-3Switvjtoo department Triage hgyyDO9018-60-78M38:37:20[facility] Triage [id number] 879|[id number] for patient qtek58339-3Tkrzaoeof department NoteLNNARRATIVEFormatted C-CDA narrative [id number] M Rivera RN[address] Jp[id number] IKGTFPQMKCQRVAJINT8123-96-93S13:37:201.2 .840.823232.1.72.3.15|1.2.840.523192.1.1 [id number] Marely Aguilar RN [facility] 2024-03-15 16:14:00 5717-12-37V00:14:00 [facility] Emergency Department NotePatient Name: Carson Mascorro of : 1960 63 year old maleTreatment Room: Room/bed info not foundMedical Record Number: [id number] Care Physician: No primary care provider on file.Patient Escorted by: Self [9]Mode of Arrival: Personal means [1]EMS Treatment Prior to ED Arrival:Travel and Exposure Screening:SymptomsDoes patient have any of these symptoms?: (not recorded)Exposure ScreeningHas patient had contact with someone with a communicable disease in the last month?: (not recorded)Diseases exposed to:: (not recorded)Is Patient ?: (not recorded)Exposure Date: (not recorded)Chief Complaint:No chief complaint on file.History of Present Illness:Pt here today with sore throat body aches runny nose cough cold and congestion, has been dealing with this for 8 days. [facility] with Vrial Syndrome, pt still feeling illHas drainage has cough has malaise, pt came her for second opinionPt takes no meds, has no medical probemsHe states he is having fever chills and sputum at night, states he is coughing so much his throat hurtsPast Medical History/Immunizations:History reviewed. No pertinent past medical history.Allergies:No Known AllergiesPast Social History:Substance & Sexual ActivityNo substance use or sexual activity history on file.Past Surgical History:History reviewed. No pertinent surgical history.Review of Systems:Review of SystemsConstitutional: Positive for chills and fatigue.HENT: Positive for congestion and rhinorrhea.Eyes: Negative.Genitourinary: Negative.All other systems reviewed and are negative.Physical Exam:ED Triage VitalsWeightActual or estimatedHeightBPPulseRespTempTemp qpvHaC9Ibafzrwo onPhysical ExamVitals and nursing note reviewed.Constitutional:Appearance: He is normal weight.HENT:Head: Normocephalic.Right Ear: External ear normal.Left Ear: External ear normal.Nose: Nose normal.Mouth/Throat:Mouth: Mucous membranes are moist.Eyes:Pupils: Pupils are equal, round, and reactive to light.Cardiovascular:Rate and Rhythm: Normal rate and regular rhythm.Pulmonary:Effort: Pulmonary effort is normal.Breath sounds: Normal breath sounds.Abdominal:General: Abdomen is flat.Palpations: Abdomen is soft.Musculoskeletal:General: No swelling or deformity. Normal range of motion.Cervical back: Normal range of motion.Skin:General: Skin is warm.Capillary Refill: Capillary refill takes less than 2 seconds.Neurological:General: No focal deficit present.Mental Status: He is alert and oriented to person, place, and time.Radiology:No orders to displayLab Results:Lab Results - No data to displayEKG:If EKG completed, see Procedure Note.Orders and Treatments:No orders of the defined types were placed in this encounter.No orders of the defined types were placed in this encounter.First Provider Eval:ED EventsDate/Time Event User Hcbqijrn03/14/24 161 Medical Screening Begins MARY ANNE BELLO MD --03/15/241616 First Provider Evaluation MARY ANNE BELLO MD --ED COURSEDiagnosis/Impression as of 03/15/240Acute coughBronchitisProcedures:ProceduresMDM: Medical Decision MakingPt here today with sore throat body aches runny nose cough cold and congestion, has been dealing with this for 8 days. [facility] with Vrial Syndrome, pt still feeling illHas drainage has cough has malaise, pt came her for second opinionPt takes no meds, has no medical probemsDdx covid flu rsv enteritis pneumonia bronchitis sinusitisPt has normal oxygen, has wet cough,No covid/strepPt feeling betterMeds givenPt has bronchitis, given it has been going on for 8 days will rx medNo wheezing so no steroidsProblems Addressed:Acute cough:Details: Vial panel xray and abxBronchitis: acute illness or injuryDetails: Cxr, viral panelAmount and/or Complexity of Data ReviewedLabs: ordered.Details: Recent Results (from the past 24 hour(s))-Rapid Strep Screen For Group A:Collection Time: 03/15/24 5:03 PMSpecimen: THROAT; SwabResult Value Ref RangeMolecular Strep Negative Negative-Influenza A B RSV COVID NAAT:Collection Time: 03/15/24 5:03 PMSpecimen: NASOPHARYNGEAL SWABResult Value Ref RangeInfluenza A NAAT Negative NegativeInfluenza B NAAT Negative NegativeRSV by PCR Negative FebpfkdfZZKI-LzG-8 NAAT Negative NegativeRadiology: ordered.Details: Perihilar/bronchiol infiltrateRiskPrescription drug management.Flowsheet Documentation:Scoring Tools:No data recordedDisposition/Condition:ED DispositionNoneDischarge Medications:Patient's MedicationsNo medications on fileFollow-up:Electronically signed by:Mary Anne Bello MD03/15/241818 84395-4Haphwpdyl Emergency department GggsMB0720-63-37B51:19:02Physician Emergency department [id number] 879|[id number] for patient enhg64524-2Fbpdkocma department NoteLNNARRATIVEFormatted C-CDA narrative keyla[address] Ju[id number] TNTEARJTSEVPEEMHRS6051-42-67R39:19:021.2 .840.386045.1.72.3.15|1.2.840.354362.1.1 [id number] [facility] 2024-02-09 00:00:00 q+AAZ8JfLh5JiheFz5nKbpuWD4o/oERJl4otkO2n Jesúsyzadela/HdvvusETCvb49g9677-98-34G12:00 :00+ ------+ +| Plan Activity | Plan Date |+ ====+ +| covid19 testing | 2020-10-21 |+ ----+ +| Co-vid test - | 2020-10-21 || Practice social distancing and home isolation good handwashing and cover cough | || , wear mask | || recommend vitamin D3, vitamin C. hydrate, deep breathing exercises. | || treat symptoms with OTC | || RTC as needed | || ER precautions | |+ ----+ +| Recommend healthy diet and exercise. | 2021-12-30 |+ ----+ +| Recommend daily exercise as part of a healthy lifestyle. | 2022-12-22 |+ ----+ +| Recommend diet high in fruits and vegetables, lean meats, low in fat and | 2022-12-22 || processed sugars. Monitor portion sizes. | |+ ----+ +| - Diabetes Medications: refill metformin 850 mg 1 tablet by mouth BID. Januvia | 2021-12-30 || 100 MG daily. | || - Educational Materials: ADA diet, exercise, blood glucose log, glucometer | || - Labs: RTO HgbA1c, CMP, lipid panel, urine microalbumin/Cr. and UA | || - Diabetic Foot Exam: Scanned into chart. | || - Annual Ophthalmology Exam/Referral: Placed into chart. | || - ED precautions | |+ ----+ +| CMP | 2021-12-30 || Differential includes tinea unguium | || Podiatry referral | |+ ----+ +| Recommend healthy diet and exercise. | 2022-12-22 |+ ----+ +| - Diabetes Medications: Continue metformin 850 mg 1 tablet by mouth BID. | 2022-01-14 || Januvia 100 mg 1 tablet by mouth daily. | || - Educational Materials: ADA diet, exercise, blood glucose log, glucometer | || - Labs: Repeat lipid panel | || - Diabetic Foot Exam: Scanned into chart. | || - Annual Ophthalmology Exam/Referral: Placed into chart. | || - ED precautions | || - Follow-up in 1 month | |+ ----+ +| Reviewed LFTs 12/2021 | 2022-01-14 || Terbinafine 250 mg once daily x 12 weeks | || Repeat LFTs in 1 month | |+ ----+ +| see plan above | 2022-12-22 |+ ----+ +| see plan above | 2022-12-22 |+ ----+ +| OTC headache medication | 2022-12-22 || f/u ophthalmology | |+ ----+ +| H Pylori | 2022-12-22 || Start omeprazole 40 mg daily | || referral EGD | || RTC 14 days for follow-up | |+ ----+ +| refer to opthalmology | 2023-10-31 |+ ----+ +| methocarbamol prn | 2023-11-01 || heat/ice therapy | |+ ----+ +| FIT card given | 2023-11-01 |+ ----+ +| Triamcinolone Acetonide 0.1 % APPLY 1 APPLICATION ON THE SKIN TWICE A DAY APPLY | 2023-11-22 || TO AFFECTED AREAS Yes | || predniSONE 20 MG TAKE 1 TABLET DAILY. Yes | || Loratadine 10 MG TAKE 1 TABLET DAILY. | |+ ----+ +| Referral to [facility] | 2024-02-09 |+ ----+ +[id number] of TreatmentLNCARE PLANTXTSFA|[id number] .[id number] for patient [id number] Section NarrativeNARRATIVEFormatted C-CDA narrative textSFAStmary Summers [facility]2024-05-11T00:00:00 Dante Summers [facility]"
[2024-03-21] MEDS ORDERED: NA CHLORIDE 0.9% 1,000 ML ONE ×3 (01:44→04:37)
[2024-03-21 02:12] LABS: Absolute Eosinophils 0.3 K/uL (0-0.5); Absolute Lymphocytes (CBC) 2.3 K/uL (0.7-4.9); Absolute Monocytes 0.5 K/uL (0.1-1.3); Absolute Neutrophil 4.1 K/uL (1.8-8.0); Basophils % 0.5 % (0-1.3); Eosinophils % 4.4 % (0-4.4); Hematocrit 46.2 % (39.6-49.0); Lymphocytes % 32.1 % (15.3-44.8); MCH 32.2 pg (27.0-35.0); MCHC 34.6 g/dL (32.0-36.0); MCV 93.3 fL (80-100); MPV 8.6 fL (7.6-11.3); Monocytes % 7.2 % (3.3-12.3); Neutrophils % 55.8 % (41.7-73.7); Platelets 199 thou/uL (152-406); RBC Red Blood Cell Count 4.95 M/uL (4.33-5.43); Red Cell Distribution Width 12.6 % (12.1-15.2)
[2024-03-21 02:26] LABS: Albumin 3.7 g/dL (3.4-5.0); Anion Gap 7.1 mEq/L (5.0-15.0); Bilirubin Total 0.4 mg/dL (0.2-1.0); Globulin 3.7 g/dL (2.3-3.5); Potassium 4.1 mEq/L (3.5-5.1); Protein, Total 7.4 g/dL (6.4-8.2)
[2024-03-21 04:14] LABS: Specific Gravity 1.009 (1.005-1.030); Urine Bilirubin NEGATIVE (Negative); Urine Blood Negative (Negative); Urine Clarity Clear (Clear); Urine Color Colorless (Yellow); Urine Glucose NEGATIVE (Negative); Urine Ketones NEGATIVE (Negative); Urine Microscopic Reflex YN NO UMIC; Urine Nitrite NEGATIVE (Negative); Urine Protein NEGATIVE (Negative); Urine Urobilinogen Normal (Normal)
--- NOTE | 2024-03-21 04:21 | ER ---
Nurse's Notes [facility] Name: Carson Alvarenga Sr Age: 63 yrs Sex: Male : 1960 Arrival Date: 03/21/2024 Time: 00:52 Bed 16 Private MD: Diagnosis: Acute pancreatitis, Presentation: 03/21 00:57 Chief complaint: Patient states: I am having abdominal pain, nausea, and I think I ha1 might be constipated. 00:57 Coronavirus screen: Vaccine status: Patient reports receiving the 2nd dose of the covid ha1 vaccine. Moderna. Ebola Screen: No symptoms or risks identified at this time. Initial Sepsis Screen: Does the patient meet any 2 criteria? No. Patient's initial sepsis screen is negative. Does the patient have a suspected source of infection? No. Patient's initial sepsis screen is negative. Risk Assessment: Do you want to hurt yourself or someone else? Patient reports no desire to harm self or others. Onset of symptoms was March 21, 2024. 00:57 Method Of Arrival: Ambulatory ha1 00:57 Acuity: TRINIDAD 3 ha1 Triage Assessment: 00:57 General: Appears comfortable, Behavior is calm, cooperative. Pain: Complains of pain in ha1 abdomen Pain does not radiate. Pain currently is 6 out of 10 on a pain scale. Quality of pain is described as crampy, Pain began 1 day ago. Neuro: Level of Consciousness is awake, alert, obeys commands, Oriented to person, place, time, situation. Cardiovascular: Capillary refill < 3 seconds Patient's skin is warm and dry. Respiratory: Airway is patent Respiratory effort is even, unlabored, Respiratory pattern is regular, symmetrical. GI: Abdomen is round non-distended, Bowel sounds present X 4 quads. Reports constipation, nausea. : No signs and/or symptoms were reported regarding the genitourinary system. Musculoskeletal: Circulation, motion, and sensation intact. Range of motion: intact in all extremities. Historical: - Allergies: : No Known Allergies; ha1 - PMHx: : Diabetes - NIDDM; ha1 - PSHx: : Appendectomy; Cholecystectomy; ha1 - Immunization history:: Adult Immunizations up to date. - Infectious Disease History:: Denies. - Social history:: Smoking status: Patient denies any tobacco usage or history of. - Family history:: not pertinent. Screenin:00 [facility] ED Fall Risk Assessment (Adult) History of falling in the last 3 months, ha1 including since admission No falls in past 3 months (0 pts) Confusion or Disorientation No (0 pts) Intoxicated or Sedated No (0 pts) Impaired Gait No (0 pts) Mobility Assist Device Used No (0 pt) Altered Elimination No (0 pt) Score/Fall Risk Level 0 - 2 = Low Risk Oriented to surroundings, Maintained a safe environment, Educated pt \T\ family on fall prevention, incl call for assistance when getting out of bed, Hourly rounding (assess needs \T\ fall precautionary measures) done. Abuse screen: Denies threats or abuse. Denies injuries from another. Nutritional screening: No deficits noted. Tuberculosis screening: No symptoms or risk factors identified. Assessment: 00:57 Reassessment: see triage assessment. ha1 02:00 Reassessment: Patient and/or family updated on plan of care and expected duration. Pain ha1 level reassessed. Patient is alert, oriented x 3, equal unlabored respirations, skin warm/dry/pink. 03:00 Reassessment: Patient and/or family updated on plan of care and expected duration. Pain ha1 level reassessed. Patient is alert, oriented x 3, equal unlabored respirations, skin warm/dry/pink. Patient states feeling better. Patient states symptoms have improved. 05:00 Reassessment: Patient and/or family updated on plan of care and expected duration. Pain rg5 level reassessed. Patient is alert, oriented x 3, equal unlabored respirations, skin warm/dry/pink. pain 2/10 Patient states feeling better. Patient states symptoms have improved. 06:00 Reassessment: Patient and/or family updated on plan of care and expected duration. Pain rg5 level reassessed. Patient is alert, oriented x 3, equal unlabored respirations, skin warm/dry/pink. Vital Signs: 00:57 BP 138 / 77; Pulse 61; Resp 19 S; Temp 97.7(T); Pulse Ox 99% on R/A; Weight 89.81 kg; ha1 Height 5 ft. 6 in. ; 02:00 BP 125 / 74; Pulse 61; Resp 17 S; Pulse Ox 97% on R/A; ha1 03:00 BP 124 / 79; Pulse 60; Resp 17 S; Pulse Ox 97% on R/A; ha1 04:15 BP 152 / 88; Pulse 68; Resp 17 S; Pulse Ox 98% on R/A; rg5 05:03 BP 129 / 82; Pulse 52; Resp 17 S; Pulse Ox 96% on R/A; rg5 06:00 BP 129 / 81; Pulse 52; Resp 17 S; Pulse Ox 96% on R/A; rg5 00:57 Body Mass Index 31.96 (89.81 kg, 167.64 cm) ha1 Dawna Coma Score: 04:17 Eye Response: spontaneous(4). Motor Response: obeys commands(6). Verbal Response: sp4 oriented(5). Total: 15. ED Course: 00:54 Patient arrived in ED. jj6 00:57 Patient has correct armband on for positive identification. Bed in low position. Call ha1 light in reach. Side rails up X 1. 00:57 Arm band placed on right wrist. ha1 00:58 Jarred Franco MD is Attending Physician. sp4 01:26 Angelina Rodriguez RN is Primary Nurse. ha1 01:26 CBC with Diff Sent. ha1 01:26 CMP Sent. ha1 01:26 Lipase Sent. ha1 01:31 Triage completed. ha1 01:49 Inserted saline lock: 20 gauge in right antecubital area, using aseptic technique. cp4 02:55 CT Abd/Pelvis - IV Contrast Only In Process Unspecified. EDMS 03:45 No provider procedures requiring assistance completed. ha1 04:20 Jeanette Morris MD is Hospitalizing Provider. sp4 07:08 Patient admitted, IV remains in place. rg5 07:48 Provided Education on: na. bp Administered Medications: 01:30 Drug: NS 0.9% IV 1000 ml IV at 1 bolus Per protocol; 1000 mL bolus Route: IV; Rate: 1 ha1 bolus; Site: right antecubital; 03:44 Follow up: Response: No adverse reaction; IV Status: Completed infusion; IV Intake: ha1 1000ml 04:48 Drug: Ketorolac IVP 30 mg IVP once Route: IVP; Site: right antecubital; rg5 05:03 Follow up: Response: No adverse reaction; Marked relief of symptoms rg5 04:50 Drug: NS 0.9% IV 1000 ml IV at 125 ml/hr continuous Route: IV; Rate: 125 ml/hr; Site: rg5 right antecubital; 04:50 Drug: NS 0.9% IV 1000 ml IV at 1 bolus Per protocol; 1000 mL bolus Route: IV; Rate: 1 rg5 bolus; Site: right antecubital; 04:50 Drug: morphine IVP or IV 4 mg IVP once over 4 mins Route: IVP; Infused Over: 4 mins; rg5 Site: right antecubital; 05:03 Follow up: Response: No adverse reaction; Marked relief of symptoms; Pain is decreased; rg5 RASS: Alert and Calm (0) 04:50 Drug: metoCLOPramide IVP 10 mg IVP once; over 1 to 2 minutes Route: IVP; Site: right rg5 antecubital; 05:03 Follow up: Response: No adverse reaction; Marked relief of symptoms rg5 Medication: 01:34 VIS not applicable for this client. ha1 Intake: 03:44 IV: 1000ml; Total: 1000ml. ha1 Outcome: 04:20 Decision to Hospitalize by Provider. sp4 07:08 Admitted to ER Hold. Please see [facility] for further documentation. rg5 07:08 Condition: stable 07:08 Instructed on the need for admit, Demonstrated understanding of instructions, 09:44 Patient left the ED. aa5 Signatures: Dispatcher [employer] EDMS Brittany Padron RN RN aa5 Ariel Steward RN Carly Gabriel jj6 Angelina Rodriguez RN RN ha1 Jarred Franco MD MD sp4 Stephanie Hancock [facility] Addy Urbina RN RN rg5
--- NOTE | 2024-03-21 04:21 | EDPHYS ---
Physician Documentation [facility] Name: Carson Alvarenga Sr Age: 63 yrs Sex: Male : 1960 Arrival Date: 03/21/2024 Time: 00:52 Bed 16 Private MD: ED Physician Jarred Franco HPI: 03/21 00:58 This 63 yrs old Male presents to ER via Unassigned with complaints of sp4 Abdominal Pain. 04:15 63-year-old male with past medical history diabetes presents with 3 days of upper sp4 abdominal pain associated with nausea worsening today. . Historical: - Allergies: : No Known Allergies; ha1 - PMHx: :31 Diabetes - NIDDM; ha1 - PSHx: :31 Appendectomy; Cholecystectomy; ha1 - Immunization history:: Adult Immunizations up to date. - Infectious Disease History:: Denies. - Social history:: Smoking status: Patient denies any tobacco usage or history of. - Family history:: not pertinent. ROS: 04:17 Constitutional: Negative for fever, chills, and weight loss, positive for abdominal sp4 pain positive for nausea. 04:17 All other systems are negative, Exam: 04:17 Constitutional: This is a well developed, well nourished patient who is awake, alert, sp4 and in no acute distress. Head/Face: Normocephalic, atraumatic. Eyes: Pupils equal round and reactive to light, extra-ocular motions intact. Lids and lashes normal. Conjunctiva and sclera are not injected. Cornea within normal limits. Periorbital areas with no swelling, redness, or edema. ENT: Nares patent. No nasal discharge, no septal abnormalities noted. Tympanic membranes are normal and external auditory canals are clear. Oropharynx with no redness, swelling, or masses, exudates, or evidence of obstruction, uvula midline. Mucous membranes moist. Neck: Trachea midline, no thyromegaly or masses palpated, and no cervical lymphadenopathy. Supple, full range of motion without nuchal rigidity, or vertebral point tenderness. Chest/axilla: Normal chest wall appearance and motion. Nontender with no deformity. No lesions are appreciated. Cardiovascular: Regular rate and rhythm with a normal S1 and S2. No gallops, murmurs, or rubs. Normal PMI, no JVD. No pulse deficits. Respiratory: Lungs have equal breath sounds bilaterally, clear to auscultation and percussion. No rales, rhonchi or wheezes noted. No increased work of breathing, no retractions or nasal flaring. Abdomen/GI: Soft, with normal bowel sounds. No distension or tympany. No guarding or rebound. Positive bilateral upper abdominal tenderness. Back: No spinal tenderness. No costovertebral tenderness. Skin: Warm, dry with normal turgor. Normal color with no rashes, no lesions, and no evidence of cellulitis. MS/ Extremity: Pulses equal, no cyanosis. Neurovascular intact. Full, normal range of motion. Neuro: Awake and alert, GCS 15, oriented to person, place, time, and situation. Cranial nerves II-XII grossly intact. Motor strength 5/5 in all extremities. Sensory grossly intact. Psych: Awake, alert, with orientation to person, place and time. Behavior, mood, and affect are within normal limits Vital Signs: 00:57 BP 138 / 77; Pulse 61; Resp 19 S; Temp 97.7(T); Pulse Ox 99% on R/A; Weight 89.81 kg; ha1 Height 5 ft. 6 in. ; 02:00 BP 125 / 74; Pulse 61; Resp 17 S; Pulse Ox 97% on R/A; ha1 03:00 BP 124 / 79; Pulse 60; Resp 17 S; Pulse Ox 97% on R/A; ha1 04:15 BP 152 / 88; Pulse 68; Resp 17 S; Pulse Ox 98% on R/A; rg5 05:03 BP 129 / 82; Pulse 52; Resp 17 S; Pulse Ox 96% on R/A; rg5 06:00 BP 129 / 81; Pulse 52; Resp 17 S; Pulse Ox 96% on R/A; rg5 00:57 Body Mass Index 31.96 (89.81 kg, 167.64 cm) ha1 Dawna Coma Score: 04:17 Eye Response: spontaneous(4). Motor Response: obeys commands(6). Verbal Response: sp4 oriented(5). Total: 15. MDM: 01:00 Patient medically screened. sp4 04:05 ED course: CT - EXAM DESCRIPTION: Abdomen Pelvis W Contrast 03/21/2024 3:34 AM CDT sp4 CLINICAL HISTORY: 63 years, Male, ABD PAIN COMPARISON: 08/25/2023 PROCEDURE: Contrast-enhanced images of the abdomen and pelvis were performed utilizing 5 mm slice thickness at 5 mm interval reconstruction from the lung bases to the ischial tuberosities after the administration of IV contrast. In addition multiplanar reformats in the coronal and sagittal plane were obtained and reviewed. An individualized dose optimization technique, Automated Exposure Control, was utilized for the performed procedure. FINDINGS: Lung bases: The lung bases demonstrate minimal dependent atelectatic changes posterior CP angles. Liver: The liver demonstrated presence of decreased attenuation corresponding to mild fatty infiltration. Gallbladder: Surgical clips within the gallbladder fossa corresponding to previous cholecystectomy. No significant biliary duct dilatation. Adrenal glands: The adrenal glands demonstrate to be normal. Pancreas: The pancreas demonstrate to be normal. Spleen: The spleen demonstrate to be within normal limits. Kidneys: The kidneys demonstrate normal uptake of contrast media. There is no evidence for nephrolithiasis and/or hydronephrosis. There is a small cyst lower pole left kidney measuring 1.3 cm on image 50 GI: Grossly the unopacified stomach, small bowel and large bowel demonstrate to be within normal limits. No evidence for bowel dilatation and/or free air. The appendix was not visualized. The large bowel demonstrate presence of mild fecal residue suggesting the possibility of mild fecal stasis. : The urinary bladder demonstrate to be partially distended. Genitalia: The prostate gland demonstrate to be mildly prominent perhaps related to BPH. Abdominal aorta: The aorta demonstrated presence of minimal peripheral atheromatous plaque extending into the aortic bifurcation. Retroperitoneum:There is no retroperitoneal lymphadenopathy. There is no evidence for ascites and/or abnormal fluid collections. Bones: The bony structures demonstrate to be within normal limits. No evidence for compression deformity and/or significant skeletal lesions. Soft tissues: There is a small left inguinal hernia containing omentum. IMPRESSION: Mild fatty infiltration of the liver. Status post cholecystectomy. Small left inguinal hernia containing omentum. Mildly prominent prostate gland perhaps related to BPH. Mild fecal residue of the large bowel suggesting the possibility of mild fecal stasis. Left Bosniak I benign renal cyst measuring 1.3 cm. No follow-up imaging is recommended. Electronically signed by: Christian Booth MD 03/21/2024 . 04:17 Differential Diagnosis altered mental status, sepsis, flu, Diverticulitis, sp4 pancreatitis,. Data reviewed: vital signs, nurses notes, lab test result(s), radiologic studies, CT scan. Consideration of Admission/Observation Patient was admitted/placed on observation. Escalation of care including admission/observation considered. Management of patient was discussed with the following: Hospitalist: Jeanette BARBER . ED course: CT today has revealed no signs of emergent medical problems.. Warrants admission for acute pancreatitis. Secondary to significant lipase elevation. Patient reported persistent pain reports pain as mostly upper abdominal but also with diffuse abdominal radiation.. 03/21 01:09 Order name: CBC with Diff; Complete Time: 04:05 sp4 03/21 01:09 Order name: CMP; Complete Time: 04:05 sp4 03/21 01:09 Order name: Lipase; Complete Time: 04:05 sp4 03/21 01:09 Order name: Urinalysis w/ reflexes; Complete Time: 04:21 sp4 03/21 04:38 Order name: CBC with Automated Diff EDMS 03/21 04:38 Order name: CBC with Automated Diff EDMS 03/21 04:38 Order name: Comprehensive Metabolic Panel EDMS 03/21 04:38 Order name: Comprehensive Metabolic Panel EDMS 03/21 04:38 Order name: Lipase EDMS 03/21 04:38 Order name: Lipase EDMS 03/21 04:38 Order name: Lipid Profile EDMS 03/21 04:38 Order name: Lipid Profile EDMS 03/21 07:47 Order name: Glucose, Ancillary Testing EDMS 03/21 01:09 Order name: CT Abd/Pelvis - IV Contrast Only sp4 03/21 01:09 Order name: IV Saline Lock; Complete Time: : sp4 03/21 01:09 Order name: Labs collected and sent; Complete Time: : sp4 03/21 04:06 Order name: NPO; Complete Time: 04:09 sp4 Administered Medications: 01:30 Drug: NS 0.9% IV 1000 ml IV at 1 bolus Per protocol; 1000 mL bolus Route: IV; Rate: 1 ha1 bolus; Site: right antecubital; 03:44 Follow up: Response: No adverse reaction; IV Status: Completed infusion; IV Intake: ha1 1000ml 04:48 Drug: Ketorolac IVP 30 mg IVP once Route: IVP; Site: right antecubital; rg5 05:03 Follow up: Response: No adverse reaction; Marked relief of symptoms rg5 04:50 Drug: NS 0.9% IV 1000 ml IV at 125 ml/hr continuous Route: IV; Rate: 125 ml/hr; Site: rg5 right antecubital; 04:50 Drug: NS 0.9% IV 1000 ml IV at 1 bolus Per protocol; 1000 mL bolus Route: IV; Rate: 1 rg5 bolus; Site: right antecubital; 04:50 Drug: morphine IVP or IV 4 mg IVP once over 4 mins Route: IVP; Infused Over: 4 mins; rg5 Site: right antecubital; 05:03 Follow up: Response: No adverse reaction; Marked relief of symptoms; Pain is decreased; rg5 RASS: Alert and Calm (0) 04:50 Drug: metoCLOPramide IVP 10 mg IVP once; over 1 to 2 minutes Route: IVP; Site: right rg5 antecubital; 05:03 Follow up: Response: No adverse reaction; Marked relief of symptoms rg5 Disposition Summary: 03/21/24 04:20 Hospitalization Ordered Notes: Hospitalization Status: Inpatient Admission sp4 Provider: Jeanette Morris sp4 Condition: Stable sp4 Problem: new sp4 Symptoms: have improved sp4 Bed/Room Type: Standard sp4 Location: Telemetry/MedSurg (Inpatient)(03/21/24 08:51) em1 Room Assignment: 209(03/21/24 08:51) em1 Diagnosis - Acute pancreatitis, sp4 Forms: - Medication Reconciliation Form sp4 - SBAR form sp4 - Leadership Thank You Letter sp4 Signatures: Dispatcher [employer] Akbar Rashid em1 Ariel Steward, TERRA ELLISON bp Angelina Rodriguez RN RN ha1 Jarred Franco MD MD sp4 Addy Urbina RN RN rg5 Corrections: (The following items were deleted from the chart) 01:09 01:09 CBC+H.LAB.BRZ ordered. EDMS EDMS 01:09 01:09 COMPREHENSIVE METABOLIC PANEL+C.LAB.BRZ ordered. EDMS EDMS 01:09 01:09 LIPASE+C.LAB.BRZ ordered. EDMS EDMS 01:09 01:09 Urinalysis+U.LAB.BRZ ordered. EDMS EDMS 01:09 01:09 Abdomen Pelvis W Con+CT.RAD.BRZ ordered. EDMS EDMS 07:04 04:20 Telemetry/MedSurg (Inpatient) sp4 bp 07:04 04:20 sp4 bp 08:51 07:[address] [facility] ER HOLD bp em1 08:51 07:04 ERHOLD- bp em1
[2024-03-21] MEDS ORDERED: ALBUTEROL 2.5 MG/3 ML NEB SOL NEB PRN ×2 (04:34→10:27)
[2024-03-21] MEDS ORDERED: MORPHINE 2 MG/ML SYR IV PRN (04:34)
[2024-03-21] MEDS ORDERED: ONDANSETRON 4 MG/2 ML VIAL IV PRN (04:34)
--- NOTE | 2024-03-21 04:34 | P.HP ---
Certification for Inpatient Patient admitted to: Observation With expected LOS: <2 Midnights Patient will require the following post-hospital care: None Practitioner: I am a practitioner with admitting privileges, knowledge of patient current condition, hospital course, and medical plan of care. Services: Services provided to patient in accordance with Admission requirements found in Title 42 Section 412.3 of the Code of Federal Regulations Patient History Date of Service: 03/21/24 Reason for admission: Abdominal pain History of Present Illness: 61-year-old male with past medical history of hypertension/DM/cholecystectomy who presented because of recurrent right upper abdominal pain radiating to the epigastric area since the last 3 days. Abdominal pain is associated with nausea and vomiting. Symptoms continue to worsen and patient presented to the ED today. Patient denies any fever, no recent diarrhea. Patient denies any cough or shortness of breath. He admits to regular metformin use. He states recent dose increase Arrival in the ED vital signs were stable afebrile, CT of the abdomen and pelvics shows normal pancreas with some fecal stasis. CBC and BMP was initially normal except for elevated lipase of 325. Previous lipase was 25 8 months ago. Patient has been admitted for presumed acute pancreatitis Allergies No Known Drug Allergies Allergy (Unverified 09/10/14 02:06) Unknown No Allergy (Uncoded 03/01/17 03:29) Unknown - Past Medical/Surgical History -: Hypertension -: Diabetes mellitus -: Cholecystectomy - Social History Smoking Status: Never smoker Smoking therapy provided: No Patient receptive to therapy: No Alcohol use: No CD- Drugs: No Caffeine use: Yes Place of Residence: Home Review of Systems Gastrointestinal: Nausea, Vomiting, Abdominal Pain, No Distention, Constipation Physical Examination - Physical Exam General: Alert, In no apparent distress, Oriented x3 HEENT: Atraumatic, Normocephalic, PERRLA Neck: Supple, 2+ carotid pulse no bruit, JVD not distended Respiratory: Clear to auscultation bilaterally, Normal air movement Cardiovascular: No edema, Regular rate/rhythm, Normal S1 S2 Capillary refill: <2 Seconds Gastrointestinal: Normal bowel sounds, Soft and benign, Non-distended, No rebound, No guarding, Tenderness (Epigastric) Musculoskeletal: No clubbing, No swelling Integumentary: No rashes, No breakdown, No significant lesion Neurological: Normal gait, Normal speech, Normal strength at 5/5 x4 extr External genitalia: No edema, No lesions - Studies Laboratory Data (last 24 hrs) 03/21/24 03/21/24 01:28 01:28 WBC 7.30 Hgb 16.0 Hct 46.2 Plt Count 199 Sodium 138 Potassium 4.1 BUN 8 Creatinine 0.78 Glucose 137 H Total Bilirubin 0.4 AST 23 ALT 59 Alkaline Phosphatase 91 Lipase 354 H Assessment and Plan - Plan Impression and plan # Acute pancreatitiskeep n.p.o., gentle IV fluid Pain regimen Antiemetic as needed Monitor daily lipase #Diabetes mellitusinsulin sliding scale with Accu-Cheks Hold metformin now since possibly contributing to pancreatitis and n.p.o. status can consider switch to Januvia prior to discharge Hypertensioncontrolled, IV hydralazine as needed DVT prophylaxissubcutaneous Lovenox Dispositionpossible hospital stay for 24 to 48 hours - Advance Directives Does patient have a Living Will: No Does patient have a Durable POA for Healthcare: No Physician Review: Patient Assessed, Agree with Above Assessment and Plan Time Spent Managing Pts Care (In Minutes): 65
[2024-03-21] MEDS ORDERED: METOCLOPRAMIDE 10 MG/2mL INJ ONE (04:37)
[2024-03-21] MEDS ORDERED: MORPHINE 4 MG/ML SYR ONE (04:37)
[2024-03-21] MEDS ORDERED: KETOROLAC 30 MG/ML INJ ONE (04:37)
[2024-03-21] MEDS: D5 0.9 NS 1,000 ML IV SCH (05:00)
--- NOTE | 2024-03-21 07:16 | P.PN ---
Date of Service: 03/21/24 Subjective: Feeling better this morning nausea resolved, minimal abdominal pain. feels bloated used to drink alcohol stopped "a while" ago doesn't feel constipated ROS: 10 point ROS as noted above, otherwise negative Physical Exam: GEN: Alert, oriented, NAD HEENT: Normal conjunctiva, sclera anicteric CV: Regular rate and rhythm, no edema Pulm: Nonlabored respirations on room air, clear bilaterally ABD: Soft, mild tenderness in epigastric region vitals reviewed Problem List: Acute pancreatitis Hypertension NIDDM2 Acute pancreatitis reports worsening upper abdominal pain/pressure, nausea for ~3 days. Abdominal pain, nausea resolved prior to arrival to the floor reports previously drank alcohol but stopped a while ago. Seen at [facility] ~1 week ago for ?bronchitis, given 1 week prescription - augmentin 03/15 CT abdomen (03/21): Mild fatty infiltration of the liver. mildly prominent prostate gland. Small left inguinal hernia containing omentum Mild fecal residue of large bowel suggest possible fecal stasis continue IV fluids with d5w advance to full liquid diet for lunch given improvement lipase 354 on admission. Repeat labs in am pain control Hypertension confirm home meds, restart as appropriate NIDDM2 accu-checks, SSI confirm home meds Code: Full Dispo: Home, ~1 day Pending lipase improves / tolerates diet without issues
[2024-03-21 08:02] VITALS: BMI 31.9
[2024-03-21] MEDS ORDERED: D5 0.9 NS 1,000 ML IV ONE (08:22)
[2024-03-21 10:11] VITALS: O2SAT 96
[2024-03-21] MEDS ORDERED: MORPHINE 4 MG/ML SYR IV PRN (10:26)
--- NOTE | 2024-03-21 13:43 | RAD REPORT ---
EXAM DESCRIPTION: CT - Abdomen Pelvis W Contrast - 03/21/2024 6:58 am CLINICAL HISTORY: 63 years, Male, ABD PAIN COMPARISON: 08/25/2023 TECHNIQUE: Contrast-enhanced images of the abdomen and pelvis were performed utilizing 5 mm slice th ickness at 5 mm interval reconstruction from the lung bases to the ischial tuberosities after the adm inistration of IV contrast. In addition multiplanar reformats in the coronal and sagittal plane were obtained and reviewed. An individualized dose optimization technique, Automated Exposure Control, was utilized for the perfo rmed procedure. FINDINGS: Lung bases: The lung bases demonstrate minimal dependent atelectatic changes posterior CP angles. Liver: The liver demonstrated presence of decreased attenuation corresponding to mild fatty infiltrat ion. Gallbladder: Surgical clips within the gallbladder fossa corresponding to previous cholecystectomy. N o significant biliary duct dilatation. Adrenal glands: The adrenal glands demonstrate to be normal. Pancreas: The pancreas demonstrate to be normal. Spleen: The spleen demonstrate to be within normal limits. Kidneys: The kidneys demonstrate normal uptake of contrast media. There is no evidence for nephroli thiasis and/or hydronephrosis. There is a small cyst lower pole left kidney measuring 1.3 cm on image 50 GI: Grossly the unopacified stomach, small bowel and large bowel demonstrate to be within normal limi ts. No evidence for bowel dilatation and/or free air. The appendix was not visualized. The large nelson l demonstrate presence of mild fecal residue suggesting the possibility of mild fecal stasis. : The urinary bladder demonstrate to be partially distended. Genitalia: The prostate gland demonstrate to be mildly prominent perhaps related to BPH. Abdominal aorta: The aorta demonstrated presence of minimal peripheral atheromatous plaque extending into the aortic bifurcation. Retroperitoneum: There is no retroperitoneal lymphadenopathy. There is no evidence for ascites and/or abnormal fluid collections. Bones: The bony structures demonstrate to be within normal limits. No evidence for compression deform ity and/or significant skeletal lesions. Soft tissues: There is a small left inguinal hernia containing omentum. IMPRESSION: Mild fatty infiltration of the liver. Status post cholecystectomy. Small left inguinal hernia containing omentum. Mildly prominent prostate gland perhaps related to BPH. Mild fecal residue of the large bowel suggesting the possibility of mild fecal stasis. Left Bosniak I benign renal cyst measuring 1.3 cm. No follow-up imaging is recommended. JACR 2018 Nov; 264-273, Management of the Incidental Renal Mass on CT, [employer] 2020; 814-848, B osniak Classification of Cystic Renal Masses, Version 2019. Electronically signed by: Christian Booth MD 03/21/2024 03:37 AM CDT RP Due to temporary technical issues with the PACS/Fluency reporting system, reports are being signed by the in house radiologist without review as a courtesy to ensure prompt reporting. The interpreting r adiologist is fully responsible for the content of the report.
[2024-03-22 03:36] LABS: Absolute Eosinophils 0.2 K/uL (0-0.5); Absolute Lymphocytes (CBC) 2.2 K/uL (0.7-4.9); Absolute Monocytes 0.4 K/uL (0.1-1.3); Basophils % 0.6 % (0-1.3); Eosinophils % 4.3 % (0-4.4); Hematocrit 40.3 % (39.6-49.0); Lymphocytes % 45.9 % (15.3-44.8); MCH 32.4 pg (27.0-35.0); MCHC 34.8 g/dL (32.0-36.0); MCV 92.9 fL (80-100); MPV 8.6 fL (7.6-11.3); Monocytes % 7.7 % (3.3-12.3); Neutrophils % 41.5 % (41.7-73.7); Platelets 164 thou/uL (152-406); RBC Red Blood Cell Count 4.34 M/uL (4.33-5.43); Red Cell Distribution Width 12.7 % (12.1-15.2)
[2024-03-22 03:53] LABS: Albumin 3.2 g/dL (3.4-5.0); Anion Gap 4.5 mEq/L (5.0-15.0); Bilirubin Total 0.3 mg/dL (0.2-1.0); Globulin 3.1 g/dL (2.3-3.5); Potassium 4.5 mEq/L (3.5-5.1); Protein, Total 6.3 g/dL (6.4-8.2)
[2024-03-22 08:34] VITALS: BP 159/81; TEMP 97.6
--- NOTE | 2024-03-22 09:18 | P.DS ---
Admission Date: 03/21/24 Discharge Date: 03/22/24 Disposition: ROUTINE DISCHARGE Discharge Condition: GOOD Reason for Admission: Abdominal pain Brief History of Present Illness: 61 yo M, PMH: hypertension/DM/cholecystectomy Patient presented because of recurrent right upper abdominal pain radiating to the epigastric area since the last 3 days. Abdominal pain is associated with nausea and vomiting. Symptoms continue to worsen and patient presented to the ED today. Patient denies any fever, no recent diarrhea. Patient denies any cough or shortness of breath. He admits to regular metformin use. He states recent dose increase Arrival in the ED vital signs were stable afebrile, CT of the abdomen and pelvics shows normal pancreas with some fecal stasis. CBC and BMP was initially normal except for elevated lipase of 325. Previous lipase was 25 8 months ago. Patient has been admitted for presumed acute pancreatitis Hospital Course: Problem List: Acute pancreatitis Hypertension NIDDM2 Physician discharge instructions: Patient presented with worsening abdominal pain, nausea, secondary to acute pancreatitis. Lipase was [address] abdomen noted mild fatty liver infiltrate, mildly prominent prostate gland, small left inguinal hernia containing omentum. Patient had improvement with IV fluids, bowel rest, and lipase quickly returned to normal within ~24 hours. Patients diet was slowly advanced and patient continued to improve. Pain resolved by the next day. Patient was feeling better, abdominal discomfort resolved, nausea/vomiting resolved, and was deemed stable for discharge. Lipase on discharge: 25. Advised to stick with low fat bland diet for few days. Avoid fatty foods. In regards to patients prostate: CT abdomen on admission noted mildly prominent prostate gland. On further discussion patient reported nocturia (~2-3 times/night), some occasional interruption of urinary flow - over the last several months. New prescription for flomax 0.4 mg sent. Advised patient to follow up with PCP for further discussion and to discuss if needs to have outpatient follow up with urology to further evaluate prostate. LFTs were noted to be mildly elevated this hospitalization. AST 61 / ALT 137. Advised to repeat blood work in ~1 week to ensure improvement/resoultion of LFTS. CT noted mild fatty liver, no evidence of obstruction, no ascites. Medications: Hold metformin over the weekend. Okay to resume on Monday03/25/24. Flomax 0.4 mg at bedtime. Follow up: PCP 3-5 days Urology in 2-4 weeks Please call to schedule / confirm appointments Physical Exam: GEN: Alert, oriented, NAD HEENT: Normal conjunctiva, sclera anicteric CV: Regular rate and rhythm, no edema Pulm: Nonlabored respirations on room air, clear bilaterally ABD: Soft, no tenderness Vital Signs/Physical Exam: Temp Pulse Resp BP Pulse Ox 97.6 F 48 L 22 H 159/81 H 99 03/22/24 08:00 03/22/24 08:00 03/22/24 08:00 03/22/24 08:00 03/22/24 08:00 Laboratory Data at Discharge: WBC 4.70 thou/uL (4.3-10.9) 03/22/24 02:54 Hgb 14.0 g/dL (13.6-17.9) D 03/22/24 02:54 Hct 40.3 % (39.6-49.0) 03/22/24 02:54 Plt Count 164 thou/uL (152-406) 03/22/24 02:54 Sodium 139 mEq/L (136-145) 03/22/24 02:54 Potassium 4.5 mEq/L (3.5-5.1) 03/22/24 02:54 BUN 6 mg/dL (7-18) L 03/22/24 02:54 Creatinine 0.75 mg/dL (0.70-1.30) 03/22/24 02:54 Glucose 170 mg/dL (74-106) H 03/22/24 02:54 Total Bilirubin 0.3 mg/dL (0.2-1.0) 03/22/24 02:54 AST 61 U/L (15-37) H 03/22/24 02:54 ALT 137 U/L (16-61) H 03/22/24 02:54 Alkaline Phosphatase 96 U/L (45-117) 03/22/24 02:54 Triglycerides 249 mg/dL (<150) H 03/22/24 02:54 Cholesterol 154 mg/dL (<200) 03/22/24 02:54 HDL Cholesterol 31 mg/dL (40-60) L 03/22/24 02:54 Cholesterol/HDL Ratio 4.97 03/22/24 02:54 Lipase 25 U/L (13-75) 03/22/24 07:24 Home Medications: Metformin HCl 1 tab PO BID 03/21/24 Tamsulosin [Flomax] 0.4 mg PO BEDTIME 30 Days #30 cap 03/22/24 New Medications: Tamsulosin [Flomax] 0.4 mg PO BEDTIME 30 Days #30 cap Physician Discharge Instructions: Physician discharge instructions: Patient presented with worsening abdominal pain, nausea, secondary to acute pancreatitis. Lipase was [address] abdomen noted mild fatty liver infiltrate, mildly prominent prostate gland, small left inguinal hernia containing omentum. Patient had improvement with IV fluids, bowel rest, and lipase quickly returned to normal within ~24 hours. Patients diet was slowly advanced and patient continued to improve. Pain resolved by the next day. Patient was feeling better, abdominal discomfort resolved, nausea/vomiting resolved, and was deemed stable for discharge. Lipase on discharge: 25. Advised to stick with low fat bland diet for few days. Avoid fatty foods. In regards to patients prostate: CT abdomen on admission noted mildly prominent prostate gland. On further discussion patient reported nocturia (~2-3 times/night), some occasional interruption of urinary flow - over the last several months. New prescription for flomax 0.4 mg sent. Advised patient to follow up with PCP for further discussion and to discuss if needs to have outpatient follow up with urology to further evaluate prostate. LFTs were noted to be mildly elevated this hospitalization. AST 61 / ALT 137. Advised to repeat blood work in ~1 week to ensure improvement/resoultion of LFTS. CT noted mild fatty liver, no evidence of obstruction, no ascites. Medications: Hold metformin over the weekend. Okay to resume on Monday03/25/24. Flomax 0.4 mg at bedtime. Follow up: PCP 3-5 days Urology in 2-4 weeks Please call to schedule / confirm appointments Followup: Joel Arciniega DO [Primary Care Provider] - Time spent managing pt's care (in minutes): 45
== END 2024-03-22 09:33 | disposition home or self-care (01) ==
LOC: ER 00:52 → ERHOLD 04:34 → 2ND 09:05
PROVIDERS: ADMIT Internal Medicine; ATTEND Hospitalist
DX: K85.90 Acute pancreatitis without necrosis or infection, unspecified (principal); R10.11 Right upper quadrant pain; I10 Essential (primary) hypertension; E11.9 Type 2 diabetes mellitus without complications; R11.2 Nausea with vomiting, unspecified; K73.0 Chronic persistent hepatitis, not elsewhere classified; K40.90 Unilateral inguinal hernia, without obstruction or gangrene, not specified as recurrent; Z90.49 Acquired absence of other specified parts of digestive tract
CPT/HCPCS: 96361; 85025 ×2; 36415 ×2; 80061; 82947 ×5; 81003; 83690 ×2; 80053 ×2; 74177; 96375; 96374; 99285; Q9967; J2765; J7042 ×3; J7030 ×3; G0378

== ENCOUNTER 2024-08-30 19:27 | Emergency (ER) | payer OTHER ==
--- OUTSIDE RECORDS SUMMARY | 2024-08-30 19:32 | XMS REPORT | Continuity of Care Document ---
Author Name Unknown Address [address] [facility]. [address] [place] [address] [facility] thconnect Address [address] [facility]. [address] [place] [address] Care Team Providers Care Vessel Traffic Officer Name Role Phone RICKIE BREANN Primary Care Physician Unavailab KEEGAN iPper Attending Clinician Unavailable DALJIT GALLAGHER Attending Clinician Unavailable OZZY ARROYO Attending Clinician Unavailable MD CHRISTIANO Attending Clinician Unavailab DEEJAY Kidd Attending Clinician Unavailable [id number] Attending Clinician Unavailable LAB90 Attending Clinician Unavailable JESSIE BASSETT Attending Clinician Unava ilable MARY ANNE BELLO Attending Clinician Unavailable MARY ANNE BELLO Attending Clinician Unavailable ISSA STRINGER Attending Clinician Unavailable MARY ANNE BELLO Admitting Clinician Unavailable Payers Payer Name Policy Type Policy Number Effective Date Expirati on Date Source [facility] JAYY MARSHALL [facility] 9 [id number] 2024 00:00:00 [facility] [id number] 2024 00:00:00 2024 00:00:00 Problems Condition Name Condition Details Condition Category Status Onset Date Resolution Date Last Treatment Date Treating Clinician Comments Source Elevated LFTs Elevated LFTs Disease Active 03-25 00:00: 00 Nohelia Seybold - Externa l DM type 2 with diabetic mixed hyperlipid emia (multi HCC) DM type 2 with diabetic mixed hyperlipid emia (multi HCC) Disease Active 03-25 00:00: 00 Nohelia Salas - Externa l History of pancreatit is History of pancreatit is Disease Active 03-25 00:00: 00 Nohelia Hoganold - Externa l Enlarged prostate Enlarged prostate Disease Active 03-25 00:00: 00 Nohelia Salas - Externa l Chronic cough Chronic cough Disease Active 03-25 00:00: 00 Nohelia Hoganold - Externa l Cataracts, bilateral Cataracts, bilateral Disease Active Nohelia Mongeybold - Externa l Allergies, Adverse Reactions, Alerts Allergy Name Allergy Type Status Severity Reaction(s) Onset Date Inactive Date Treating Clinician Comments Source NO KNOWN ALLERGIE S Drug Class Active [facility] Social History Social Habit Start Date Stop Date Quantity Comments Source History of tobacco use 1992-02-10 00:00:00 Cigarette Smoker Nohelia Salas - External Sexual orientation K cruz Salas - External Alcoholic beverage intake 2024-08-06 00:00:00 2024-08-06 00:00:00 .14 /d Nohelia Salas - External History of Social function 2024-08-06 00:00:00 2024-08-06 00:00:00 Nohelia Salas - External Cigarettes smoked current (pack per day) - Reported 2024-03-25 00:00:00 2024-03-25 00:00:00 Nohelia Salas - External Cigarette pack-years 2024-03-25 00:00:00 2024-03-25 00:00:00 Nohelia Salas - External Sex 2023-08-31 07:39:15 2023-08-31 07:39:15 Male (finding) Nohelia Salas - External Sex assigned at 1960 00:00:00 1960 00:00:00 Nohelia Salas - External Smoking Status Start Date Stop Date Source Tobacco smoking consumption unknown [facility] Ex-smoker 2024-03-25 00:00:00 2024-03-25 00:00:00 Nohelia Seybold - External Medications Ordered Medication Name Filled Medication Name Start Date Stop Date Current Medication? Ordering Clinician Indication Dosage Frequency Signature (SIG) Comments Components Source prednisoLON E Acetate 1 % ophthalmic Suspension 2023-10 00:00: 00 Yes 1[drp] Q.25D Place 1 drop into the left eye 4 times daily. Nohelia Saxenaa monik KETOROLAC TROMETHAMIN E, OPHTH, (Acular) 0.5 % ophthalmic Solution 2023-10 00:00: 00 Yes 1[drp] Q.25D Place 1 drop into the left eye 4 times daily. Nohelia Wyatt Externa l Moxifloxaci n HCl 0.5 % ophthalmic Solution 2023-10 00:00: 00 Yes 1[drp] Q.25D Place 1 drop into the left eye 4 times daily. Nohelia Wyatt Externa l Pantoprazol e Sodium 20 MG oral Tablet Delayed Response 2023-10 00:00: 00 Yes [id number] 20mg QD Take 1 tablet by mouth once daily Nohelia Saxenaa l Pantoprazol e Sodium 20 MG oral Tablet Delayed Response 06-27 00:00: 00 Yes [id number] 20mg QD Take 1 tablet by mouth once daily Nohelia Saxenaa monik Metformin HCl 850 MG oral Tablet 06-27 00:00: 00 Yes [id number] 3 850mg Take 1 tablet (850 mg total) by mouth in the morning and 1 tablet (850 mg total) in the evening. Take with meals. Nohelia Saxenaa l Tamsulosin HCl 0.4 MG oral Capsule 06-27 00:00: 00 Yes [id number] .4mg Take 1 capsule (0.4 mg total) by mouth every night at bedtime. Nohelia Wyatt Externa l prednisoLON E Acetate 1 % ophthalmic Suspension 05-24 00:00: 00 Yes 1[drp] Q.25D Place 1 drop into the right eye 4 times daily. Nohelia Wyatt Externa monik KETOROLAC TROMETHAMIN E, OPHTH, (Acular) 0.5 % ophthalmic Solution 05-24 00:00: 00 Yes 1[drp] Q.25D Place 1 drop into the right eye 4 times daily. Nohelia ruggiero Moxifloxaci n HCl 0.5 % ophthalmic Solution 05-24 00:00: 00 08-01 00:00 :00 No 1[drp] Q.25D Place 1 drop into the right eye 4 times daily. Nohelia ruggiero Atorvastati n Calcium 40 MG oral Tablet 04-30 00:00: 00 Yes [id number] 3 40mg QD Take 1 tablet (40 mg total) by mouth nightly. Nohelia ruggiero Fenofibrate Micronized 200 MG oral Capsule 04-30 00:00: 00 Yes [id number] 3 200mg Take 1 capsule (200 mg total) by mouth every morning (before breakfast) . Nohelia ruggiero Amoxicillin -Pot Clavulanate 875-125 MG oral Tablet 04-22 15:19: 34 04-22 00:00 :00 No [id number] 1{tbl} Q.5D Take 1 tablet by mouth 2 times daily. Nohelia ruggiero Pantoprazol e Sodium 20 MG oral Tablet Delayed Response 04-22 00:00: 00 Yes [id number] 20mg QD Take 1 tablet (20 mg total) by mouth daily. Nohelia ruggiero Amoxicillin -Pot Clavulanate 875-125 MG oral Tablet 03-25 11:25: 45 Yes [id number] 1{tbl} Q.5D Take 1 tablet by mouth 2 times daily. Nohelia ruggiero [place]-3-aci d Ethyl Esters 1 g oral Capsule 03-25 00:00: 00 Yes [id number] 3 2g Q.5D Take 2 capsules (2 g total) by mouth 2 times daily. Nohelia ruggiero Metformin HCl 850 MG oral Tablet 03-25 00:00: 00 Yes [id number] 3 850mg Take 1 tablet (850 mg total) by mouth in the morning and 1 tablet (850 mg total) in the evening. Take with meals. Nohelia ruggiero Tamsulosin HCl 0.4 MG oral Capsule 03-23 00:00: 00 Yes [id number] Nohelia ruggiero benzonatate (TESSALON PERLES) capsule 100 mg 03-16 00:00: 00 03-16 11:59 :00 No 100mg 100 mg, Oral, ONCE, 1 dose, On Mon03/15/24 at 1900, Routine [facility] amoxicillin -clavulanat e (AUGMENTIN) 875-125 mg per tablet 1 tablet 03-16 00:00: 00 03-16 11:59 :00 No 1{tbl} 1 tablet, Oral, ONCE, 1 dose, On Mon03/15/24 at 1900, Routine, Reason for Anti-Infec tive: Documented Infection, Documented Infection Site: Respirator y, Duration of Therapy: Once (ED) [facility] benzonatate 100 mg capsule 03-15 00:00: 00 Yes [id number] 100mg Take 1 capsule by mouth 3 (three) times daily as needed for Cough. [facility] Albuterol HFA 108 (90 Base) MCG/ACT IN AERS 03-15 00:00: 00 04-22 00:00 :00 No [id number] Nohelia ruggiero amoxicillin -clavulanat e 875-125 mg per tablet 03-15 00:00: 00 03-23 04:59 :00 No [id number] 1{tbl} Take 1 tablet by mouth every 12 (twelve) hours for 7 days. [facility] Metformin HCl 850 MG oral Tablet -03 00:00: 00 03-25 00:00 :00 No 850mg Take 1 tablet (850 mg total) by mouth in the morning and 1 tablet (850 mg total) in the evening. Take with meals. Nohelia ruggiero Triamcinolo ne Acetonide 0.1 % apply externally Cream 11-22 00:00: 00 Yes Nohelia ruggiero predniSONE (DELTASONE) 20 MG oral tablet 11-22 00:00: 00 04-22 00:00 :00 No Nohelia Seybold - Externa l TAKE 1 TABLET DAILY. 11-22 00:00: 00 02-12 00:00 :00 No 10 Dante Arevalo TAKE 1 TABLET TWICE DAILY WITH MEALS 11-01 00:00: 00 Yes 850 Dante Arevalo TAKE 1 TABLET DAILY. 11-01 00:00: 00 Yes 100 Dante Arevalo Methocarbam ol 500 MG oral Tablet 11-01 00:00: 00 04-22 00:00 :00 No Nohelia Seybold - Externa l TAKE 1 TABLET BY MOUTH TWICE DAILY WITH MEALS 10-31 00:00: 00 Yes Dante Arevalo TAKE 1 CAPSULE BY MOUTH THREE TIMES A DAY NEEDED 2022-10 2 00:00: 00 Yes Dante Arevalo TAKE ONE CAPSULE BY MOUTH EVERY 24 HOURS 2022-10 124 00:00: 00 Yes Dante Arevalo TAKE 1 TABLET ONCE DAILY BEFORE MEALS 3 00:00: 00 02-12 00:00 :00 No 40 Dante Arevalo INSTILL 1 DROP INTO AFFECTED EYE(S) EVERY 3 HOURS WHILE AWAKE FOR 10 DAYS 2021-10 0-03 00:00: 00 02-12 00:00 :00 No Dante Arevalo Dose Unknown 6-02 00:00: 00 Yes Dante Arevalo Dose Unknown 4-18 00:00: 00 Yes Dante Arevalo Dose Unknown 4-18 00:00: 00 Yes Dante Arevalo Januvia 100 mg tablet 4-15 00:00: 00 Yes 1mg Dante Arevalo terbinafine HCl 250 mg tablet 4-15 00:00: 00 Yes 1mg Dante Arevalo metformin 850 mg tablet 4-15 00:00: 00 Yes 1mg Dante Arevalo Dose Unknown 4-06 00:00: 00 Yes Dante Josefina Arevalo Dose Unknown 4-04 00:00: 00 Yes Dante Josefina Arevalo Dose Unknown 4-02 00:00: 00 Yes Dante Josefina Arevalo Dose Unknown 2022-0 4-01 00:00: 00 Yes Dante Arevalo Dose Unknown 12-30 00:00: 00 Yes Dante Arevalo Immunizations Ordered Immunization Name Filled Immunization Name Date Status Comments Source Hep A/ Hep B Combo Unknown Completed Nadia elseitalia Seybold - External RSV, Arexvy Unknown Completed Nohelia S eybold - External Tdap- (Boostrix, Adacel) Unknown Completed Nohelia Seybold - External Shingles IM (Shingrix) Unknown Completed Nohelia Seybold - External Influenza Virus Vaccine, No Preserv, age 6 months and up Unknown Completed Nohelia S eybold - External Hep A/ Hep B Combo Unknown Completed Nadia elseitalia Seybold - External RSV, Arexvy Unknown Completed Nohelia S eybold - External Tdap- (Boostrix, Adacel) Unknown Completed Nohelia Seybold - External Shingles IM (Shingrix) Unknown Completed Nohelia Seybold - External Influenza Virus Vaccine, No Preserv, age 6 months and up Unknown Completed Nohelia S eybold - External Hep A/ Hep B Combo Unknown Completed Nadia elseitalia Seybold - External RSV, Arexvy Unknown Completed Nohelia S eybold - External Tdap- (Boostrix, Adacel) Unknown Completed Nohelia Seybold - External Shingles IM (Shingrix) Unknown Completed Nohelia Seybold - External Influenza Virus Vaccine, No Preserv, age 6 months and up Unknown Completed Nohelia S eybold - External Hep A/ Hep B Combo Unknown Completed Nadia elseitalia Seybold - External RSV, Arexvy Unknown Completed Nohelia S eybold - External Tdap- (Boostrix, Adacel) Unknown Completed Nohelia Seybold - External Shingles IM (Shingrix) Unknown Completed Nohelia Seybold - External Influenza Virus Vaccine, No Preserv, age 6 months and up Unknown Completed Nohelia S eybold - External Hep A/ Hep B Combo Unknown Completed Nadia elsey Seybold - External RSV, Arexvy Unknown Completed Nohelia S eybold - External Tdap- (Boostrix, Adacel) Unknown Completed Onhelia Seybold - External Shingles IM (Shingrix) Unknown Completed Nohelia Seybold - External Influenza Virus Vaccine, No Preserv, age 6 months and up Unknown Completed Nohelia heltonbold - External Hep A/ Hep B Combo Unknown Completed Nadia arroyo Sekonstantinvika - External RSV, Arexvy Unknown Completed Nohelia moulton - External Tdap- (Boostrix, Adacel) Unknown Completed Nohelia Mongekonstantinvika - External Shingles IM (Shingrix) Unknown Completed Nohelia Mongekonstantinvika - External Influenza Virus Vaccine, No Preserv, age 6 months and up Unknown Completed Nohelia heltonbold - External Vital Signs Vital Name Observation Time Observation Value Comments S ource Systolic blood pressure 2024-04-22 20:17:00 124 mm[Hg] Nohelia Hogano ld - External Diastolic blood pressure 2024-04-22 20:17:00 68 mm[Hg] Nohelia Mongeybo ld - External Heart rate 2024-04-22 20:17:00 64 /min Elliottse y Seybold - External Body temperature 2024-04-22 20:17:00 36.44 Ynes Nohelia Mongeybold - External Respiratory rate 2024-04-22 20:17:00 16 /min Nohelia Seybold - External Body height 2024-04-22 20:17:00 172.7 cm Louise ey Seybold - External Body weight 2024-04-22 20:17:00 89.812 kg Louise ey Seybold - External BMI 2024-04-22 20:17:00 30.11 kg/m2 Louise ey Seybold - External Systolic blood pressure 2024-03-25 16:15:00 122 mm[Hg] Nohelia Mongeybo ld - External Diastolic blood pressure 2024-03-25 16:15:00 68 mm[Hg] Nohelia Mongeybo ld - External Heart rate 2024-03-25 16:15:00 67 /min Elliottse y Seybold - External Body temperature 2024-03-25 16:15:00 36.44 Ynes Nohelia Seybold - External Respiratory rate 2024-03-25 16:15:00 16 /min Nohelia Seybold - External Body height 2024-03-25 16:15:00 172.7 cm Louise ey Seybold - External Body weight 2024-03-25 16:15:00 91.173 kg Louise ey Seybold - External BMI 2024-03-25 16:15:00 30.56 kg/m2 Louise Salas - External Systolic blood pressure 2024-03-15 21:37:00 129 mm[Hg] [facility] Diastolic blood pressure 2024-03-15 21:37:00 86 mm[Hg] [facility] Heart rate 2024-03-15 21:37:00 74 /min [facility] 2024-03-15 21:37:00 37.22 Ynes [facility] Respiratory rate 2024-03-15 21:37:00 16 /min [facility] Body height 2024-03-15 21:37:00 172.7 cm [facility] Body weight 2024-03-15 21:37:00 89.812 kg [facility] BMI 2024-03-15 21:37:00 30.11 kg/m2 [facility] Oxygen saturation in Arterial blood by Pulse oximetry 2024-03-15 21:37:00 100 /min [facility] Body Temperature 2024-02-09 16:10:00 98.20 degrees Dante Arevalo Heart Rate 2024-02-09 16:10:00 88.00 /min Daphne en F Mickey Respiratory Rate 2024-02-09 16:10:00 18.00 /min Dante F Mickey BP Systolic 2024-02-09 16:10:00 131 mm[Hg] Step hen F Mickey BP Diastolic 2024-02-09 16:10:00 81 mm[Hg] Jeffry phen F Mickey Weight Measured 2024-02-09 16:10:00 198.20 pounds Dante Arevalo Height Measured 2024-02-09 16:10:00 68.00 inches Dante Josefina Arevalo BP Systolic 2023-11-22 15:41:00 142 mm[Hg] Step hen F Mickey BP Diastolic 2023-11-22 15:41:00 78 mm[Hg] Jeffry phen F Mickey Weight Measured 2023-11-22 15:41:00 200.60 pounds Dante Arevalo Height Measured 2023-11-22 15:41:00 68.00 inches Dante Arevalo Body Temperature 2023-11-22 15:41:00 98.20 degrees Dante F Mickey Heart Rate 2023-11-22 15:41:00 67.00 /min Daphne en F Mickey Respiratory Rate 2023-11-22 15:41:00 17.00 /min Dante F Mickey Height Measured 2023-10-31 18:05:00 68.00 inches Dante F Mickey Body Temperature 2023-10-31 18:05:00 97.60 degrees Dante F Mickey Heart Rate 2023-10-31 18:05:00 71.00 /min Daphne en F Mickey Respiratory Rate 2023-10-31 18:05:00 Dante F Mickey BP Systolic 2023-10-31 18:05:00 156 mm[Hg] Step hen F Mickey BP Diastolic 2023-10-31 18:05:00 81 mm[Hg] Jeffry phen F Mickey Weight Measured 2023-10-31 18:05:00 203.80 pounds Dante F Mickey BP Systolic 2023-10-31 17:49:00 [...] Weight Measured 2022-01-14 17:21:00 201.40 pounds Dante F Mickey Height Measured 2022-01-14 17:21:00 68.00 inches Dante F Mickey Body Temperature 2022-01-14 17:21:00 98.30 degrees Dante F Mickey Heart Rate 2022-01-14 17:21:00 66.00 /min Daphne en F Mickey Respiratory Rate 2022-01-14 17:21:00 16.00 /min Dante F Mickey BP Systolic 2021-12-30 16:09:00 144 mm[Hg] Step hen F Mickey BP Diastolic 2021-12-30 16:09:00 76 mm[Hg] Jeffry phen F Mickey Weight Measured 2021-12-30 16:09:00 204.40 pounds Dante F Mickey Height Measured 2021-12-30 16:09:00 68.00 inches Dante F Mickey Body Temperature 2021-12-30 16:09:00 98.10 degrees Dante F Mickey Heart Rate 2021-12-30 16:09:00 74.00 /min Daphne en F Mickey Respiratory Rate 2021-12-30 16:09:00 16.00 /min Dante F Mickey Procedures Procedure Date / Time Performed Performing Clinicia n Source XR CHEST 2 VW 2024-03-15 22:20:54 Mary Anne Bello [facility] RAPID STREP SCREEN FOR GROUP A 2024-03-15 22:03:00 Mary Anne Bello [facility] INFLUENZA A/B RSV COVID NAAT 2024-03-15 22:03:00 Mary Anne Bello [facility] Encounters Start Date/Time End Date/Time Encounter Type Admission Type Attending Clinicians Care Facility Care Department Encounter ID Source 2024-09-05 13:45:00 2024-09-05 13:45:00 Outpatient KEEGAN SEARS [id number] Nohelia Salas 2024-09-05 11:30:00 2024-09-05 11:30:00 Outpatient DALJIT GALLAGHER [id number] Nohelia Seybold 2024-08-26 00:00:00 2024-08-26 00:00:00 Outpatient OZZY ARROYO NOHELIA TAYLOR [id number] Nohelia Seybold 2024-08-06 09:15:00 2024-08-06 09:15:00 Outpatient RENUKEEGAN Tracey NOHELIA TAYLOR [id number] Nohelia Seybold 2024-08-05 07:30:00 2024-08-05 07:30:00 Outpatient KEEGAN SEARS NOHELIA TAYLOR [id number] Nohelia Seybold 2024-08-01 10:30:00 2024-08-01 10:30:00 Outpatient RENUKEEGAN Tracey [facility] [id number] [facility] 2024-07-24 00:00:00 2024-07-24 00:00:00 Outpatient OZZY ARROYO NOHELIA TAYLOR [id number] [facility] 2024-07-23 00:00:00 2024-07-23 00:00:00 Outpatient OZZY ARROYO NOHELIA TAYLOR [id number] Nohelia Seybold 2024-07-08 00:00:00 2024-07-08 00:00:00 Outpatient OZZY ARROYO NOHELIA TAYLOR [id number] Nohelia Seybold 2024-07-04 09:45:00 2024-07-04 09:45:00 Outpatient KEEGAN SEARS NOHELIA TAYLOR [id number] Nohelia Seybold 2024-07-03 07:00:00 2024-07-03 07:00:00 Outpatient KEEGAN SEARS NOHELIA TAYLOR [id number] Nohelia Seybold 2024-07-02 00:00:00 2024-07-02 00:00:00 Outpatient CRUZ OZZY NOHELIA TAYLOR [id number] Nohelia Seybold 2024-06-28 00:00:00 2024-06-28 00:00:00 Outpatient MD NOHELIA DEL ANGEL [id number] Nohelia Seybold 2024-06-27 00:00:00 2024-06-27 00:00:00 Outpatient DEEJAY ZEE [id number] [facility] 2024-06-22 00:00:00 2024-06-22 00:00:00 Outpatient OZZY ARROYO NOHELIA [id number] [facility] 2024-05-24 15:45:00 2024-05-24 15:45:00 Outpatient TRED45 NOHELIA TAYLOR [id number] [facility] 2024-05-24 14:00:00 2024-05-24 14:00:00 Outpatient KEEGAN SEARS NOHELIA TAYLOR [id number] [facility] 2024-04-30 00:00:00 2024-04-30 00:00:00 Outpatient OZZY ARROYO NOHELIA TAYLOR [id number] [facility] 2024-04-30 00:00:00 2024-04-30 00:00:00 Outpatient OZZY ARROYO NOHELIA TAYLOR [id number] [facility] 2024-04-23 08:00:00 2024-04-23 08:00:00 Outpatient LAB90 NOHELIA NOHELIA [id number] [facility] 2024-04-22 15:30:00 2024-04-22 15:30:00 Outpatient OZZY ARROYO NOHELIA TAYLOR [id number] [facility] 2024-03-25 13:00:00 2024-03-25 13:00:00 Outpatient LAB90 NOHELIA NOHELIA [id number] [facility] 2024-03-25 11:00:00 2024-03-25 11:00:00 Outpatient OZZY ARROYO NOHELIA TAYLOR [id number] [facility] 2024-03-22 16:30:00 2024-03-22 16:30:00 Outpatient DANYELLE JESSIE TAYLOR [id number] [facility] 2024-03-15 16:38:00 2024-03-15 18:30:00 Emergency X MARY ANNE BELLO [facility] ERT [id number] [facility] 2024-03-15 16:38:00 2024-03-15 18:30:00 Emergency Mary Anne Bello [facility] [id number] [facility] 2024-02-21 00:00:00 2024-02-21 00:00:00 Outpatient ISSA STRINGER [id number] [facility]24-02-21 00:00:00 2024-02-21 00:00:00 Outpatient KEEGAN SEARS [id number] [facility] 2024-02-20 00:00:00 2024-02-20 00:00:00 Outpatient ISSA STRINGER [id number] [facility] 2024-02-09 16:05:52 2024-02-09 16:05:52 Outpatient [facility] [id number] Dante Arevalo 2024-02-09 00:00:00 2024-02-09 00:00:00 Outpatient Visit [facility] [id number] Dante Arevalo 2023-11-22 00:00:00 2023-11-22 00:00:00 Outpatient Visit [facility] [id number] Dante Arevalo 2023-10-31 17:42:40 2023-10-31 17:42:40 Outpatient [facility] [id number] Dante Arevalo 2022-12-22 14:52:49 2022-12-22 14:52:49 Outpatient [facility] [id number] Dante Arevalo Results Test Description Test Time Test Comments Results Resul t Comments Source XR CHEST 2 VW 2024-03-15 23:25:59 Exam: XR CHEST 2 VW, 03/15/2024 5:00 PM. Ordering Physician: MARY ANNE BELLO. History: cough . Technique: Two views of the chest. Comparison: None. Findings: Mild diffuse reticulation possibly personal financial representative of chronic lung disease.No focal consolidation. No pneumothorax or effusion. Normal size of thecardiac silhouette. No acute osseous finding. [facility] Dante ArevaloKeerthi. PYLORI (BREATH)2022-12-23 00:00:00* Test Item Value Reference Range Interpretation Comme nts H. PYLORI (BREATH) (test cod e = 77722) NEGATIVE Dante Rocha AustinALBUMIN/CREATININE RATIO, URINE, [id number] 03:15:45* Test Item Value Reference Range Interpretation Comme nts CREATININE, URINE, RANDOM (test code = 2071) 85.9 MG/DL NOT ESTAB ALBUMIN, URINE, RANDOM (test code = 75495) 0.4 MG/DL NOT ESTAB CALC ALBUMIN/CREAT, RND (test code = 24148) 5 MG/G <30 Note: Albumin/Creatinine ratio reference interval reflects ADA and NKF guidelines. MICROALBUMIN/CREATININE, RANDOM AND [id number] 00:00:00* Test Item Value Reference Range Interpretation Comme nts CREATININE, URINE, RANDOM (t est code = 2071) 85.9 MG/DL ALBUMIN, URINE, RANDOM (test code = 03803) 0.4 MG/DL CALC ALBUMIN/CREAT, RND (lynsey t code = 05240) 5 MG/G Dante ArevaloMICROALBUMIN/CREATININE, RANDOM AND [id number] 00:00:00* Test Item Value Reference Range Interpretation Comme nts CREATININE, URINE, RANDOM (t est code = 2071) 85.9 MG/DL ALBUMIN, URINE, RANDOM (test code = 80926) 0.4 MG/DL CALC ALBUMIN/CREAT, RND (lynsey t code = 10103) 5 MG/G Dante ArevaloCOMPREHENSIVE METABOLIC [id number] 02:00:22* Test Item Value Reference Range Interpretation Comme nts GLUCOSE (test code = 2217) 193 MG/DL 70-99 H BUN (test code = 2208) 9 MG/DL 8-23 CREATININE (test code = 2214) 0.73 MG/DL 0.80-1.40 L eGFR (2020 CKD-EPI) (test code = 84185) 104 ML/MIN/1.73 >60 CALC BUN/CREAT (test code = 2235) 12 RATIO 6-28 SODIUM (test code = 2231) 139 MEQ/L 133-146 POTASSIUM (test code = 2228) 4.8 MEQ/L 3.5-5.4 CHLORIDE (test code = 2215) 104 MEQ/L 95-107 CARBON DIOXIDE (test code = 6) 21 MEQ/L 19-31 CALCIUM (test code = 2208) 10.7 MG/DL 8.5-10.5 H PROTEIN, TOTAL (test code = 222) 6.8 G/DL 6.1-8.3 ALBUMIN (test code = 2201) 4.3 G/DL 3.5-5.2 CALC GLOBULIN (test code = 2240) 2.5 G/DL 1.9-3.7 CALC A/G RATIO (test code = 2234) 1.7 RATIO 1.0-2.6 BILIRUBIN, TOTAL (test code = 220) 0.3 MG/DL See_Comment [Automated me ssage] The system which generated this result transmitted reference range: <=1.2. The reference range was not used to interpret this result as normal/abnormal. ALKALINE PHOSPHATASE (test code = 2203) 130 U/L 40-123 H AST (test code = 221) 29 U/L 9-50 ALT (test code = 2218) 42 U/L 5-50 LIPID [id number] 02:00:22* Test Item Value Reference Range Interpretation Comme nts CHOLESTEROL (test code = 2210) 228 MG/DL <200 H TRIGLYCERIDES (test code = 2232) 817 MG/DL <150 H HDL CHOLESTEROL (test code = 0) 26 MG/DL >39 L CALC LDL CHOL (test code = 223) (NOTE) MG/DL <100 UNABLE TO CALCUL ATE A VALID LDL CHOLESTEROL WHEN THE TRIGLYCERIDEVALUE IS GREATER THAN 400 MG/DL. NOTE: CALCULATED LDL IS BASED ON NANETTE-BULL METHOD WHICHINCLUDES ADJUSTABLE TRIGLYCERIDE:VLDL CHOLESTEROL RATIO.THIS FACTOR VARIES BY MEASURED TRIGLYCERIDE AND NON-HDLCHOLESTEROL CONCENTRATIONS WITH INCREASED CALCULATED LDL SEENIN HIGHER TRIGLYCERIDE OR LOWER NON-HDL SPECIMENS. FOR MOREINFORMATION, SEE CLIENT ANNOUNCEMENT AT [email or web address] CalcLDL-C RISK RATIO LDL/HDL (test code = 2238) 3.58 RATIO <3.55 H UNABLE TO TREVOR CULATE COMPREHENSIVE METABOLIC [id number] 00:00:00* Test Item Value Reference Range Interpretation Comme nts GLUCOSE (test code = 2216) 193 MG/DL BUN (test code = 2207) 9 MG/DL CREATININE (test code = 2214) 0.73 MG/DL eGFR (2020 CKD-EPI) (test code = 14336) 104 ML/MIN/1.73 CALC BUN/CREAT (test code = 2235) 12 RATIO SODIUM (test code = 2231) 139 MEQ/L POTASSIUM (test code = 2228) 4.8 MEQ/L CHLORIDE (test code = 2215) 104 MEQ/L CARBON DIOXIDE (test code = 2206) 21 MEQ/L CALCIUM (test code = 2209) 10.7 MG/DL PROTEIN, TOTAL (test code = 2229) 6.8 G/DL ALBUMIN (test code = 2201) 4.3 G/DL CALC GLOBULIN (test code = 2240) 2.5 G/DL CALC A/G RATIO (test code = 2234) 1.7 RATIO BILIRUBIN, TOTAL (test code = 2207) 0.3 MG/DL ALKALINE PHOSPHATASE (test code = 2204) 130 U/L AST (test code = 2218) 29 U/L ALT (test code = 2219) 42 U/L Dante ArevaloLIPID [id number] 00:00:00* Test Item Value Reference Range Interpretation Comme nts CHOLESTEROL (test code = 2210) 228 MG/DL TRIGLYCERIDES (test code = 2232) 817 MG/DL HDL CHOLESTEROL (test code = 2220) 26 MG/DL CALC LDL CHOL (test code = 2237) (NOTE) MG/DL RISK RATIO LDL/HDL (test cod e = 2238) 3.58 RATIO Dante ArevaloCOMPREHENSIVE METABOLIC [id number] 00:00:00* Test Item Value Reference Range Interpretation Comme nts GLUCOSE (test code = 2217) 193 MG/DL BUN (test code = 2208) 9 MG/DL CREATININE (test code = 2214) 0.73 MG/DL eGFR (2020 CKD-EPI) (test code = 34209) 104 ML/MIN/1.73 CALC BUN/CREAT (test code = 2235) 12 RATIO SODIUM (test code = 2231) 139 MEQ/L POTASSIUM (test code = 2228) 4.8 MEQ/L CHLORIDE (test code = 2215) 104 MEQ/L CARBON DIOXIDE (test code = 2206) 21 MEQ/L CALCIUM (test code = 2209) 10.7 MG/DL PROTEIN, TOTAL (test code = 2229) 6.8 G/DL ALBUMIN (test code = 2201) 4.3 G/DL CALC GLOBULIN (test code = 2240) 2.5 G/DL CALC A/G RATIO (test code = 2234) 1.7 RATIO BILIRUBIN, TOTAL (test code = 2207) 0.3 MG/DL ALKALINE PHOSPHATASE (test code = 2204) 130 U/L AST (test code = 2218) 29 U/L ALT (test code = 2219) 42 U/L Dante ArevaloLIPID [id number] 00:00:00* Test Item Value Reference Range Interpretation Comme nts CHOLESTEROL (test code = 2210) 228 MG/DL TRIGLYCERIDES (test code = 2232) 817 MG/DL HDL CHOLESTEROL (test code = 2220) 26 MG/DL CALC LDL CHOL (test code = 2237) (NOTE) MG/DL RISK RATIO LDL/HDL (test cod e = 2238) 3.58 RATIO Dante ArevaloHEMOGLOBIN [id number] 05:35:47* Test Item Value Reference Range Interpretation Comme nts HEMOGLOBIN A1c (test code = 16854) 10.0 % 4.2-5.6 H [employer] GUIDELINES FOR HGB A1C: [...] CONSULTATION. UNLESS OTHERWISE INDICATED, ALL TESTING PERFORMED [facility] [address] [place] [address] TACTICAL DECEPTION PLANS OFFICER: ARIES ALVAREZ M.D. CLIA NUMBER [id number] [facility] [place]. [id number] HEMOGLOBIN [id number] 00:00:00* Test Item Value Reference Range Interpretation Comme nts HEMOGLOBIN A1c (test code = 05442) 10.0 % Dante Josefina MickeyHEMOGLOBIN [id number] 00:00:00* Test Item Value Reference Range Interpretation Comme nts HEMOGLOBIN A1c (test code = 42723) 10.0 % Dante ArevaloSARS-CoV-2 (COVID-19) by RT-PCR (HIGH RISK)2020-10-22 00:00:00* Test Item Value Reference Range Interpretation Comme nts SARS-CoV-2 INTERPRETATION (t est code = 95671) NEGATIVE SOURCE (test code = 47557) NOT SPECIFIED Dante ArevaloSARS-CoV-2 (COVID-19) by RT-PCR (HIGH RISK)2020-10-22 00:00:00* Test Item Value Reference Range Interpretation Comme nts SARS-CoV-2 INTERPRETATION (t est code = 16084) NEGATIVE SOURCE (test code = 27576) NOT SPECIFIED Dante Arevalo Notes Date/Time Note Provider Source 2024-04-22 15:20:18 Chief Complaint Patient presents with Diabetes Diabetic follow up Melissa Xiong MA II [facility] 2024-03-25 11:25:48 Chief Complaint Patient presents with Establish Care He was previously seeing a PCP at [facility] F/U Follow up from [facility] ER on 03/15/2024 for bronchitis. He was then seen at [facility] for abdominal. He was diagnosed with Pancreatitis and enlarged prostate. Needing referrals. Melissa Xiong MA II [facility] 2024-03-15 18:18:32 Pt given printed and verbal discharge instructions regarding bronchitis, self-care for colds, encouraged hydration, 3 Prescriptions provided Discussed ibuprofen and to take with food to avoid GI distress. Discussed antibiotic therapy and to take until all completed unless adverse reaction occurs - if occurs, discontinue medication and follow up with pcp/seek medical attention Pt verbalized understanding of instructions, pt awake alert oriented, resp reg unlabored, skin w/d, color appropriate for race, moves all ext well,pt encouraged to follow up with pcp Advised to seek medical attention for new/prolonged/worsening of symptoms, No adverse reaction to meds given in ER noted upon discharge Awake, alert oriented, resp reg unlabored, skin w/d, pt leaving amb with steady gait, in no apparent distress, Frieda Burden RN [facility] 2024-03-15 16:36:08 CC: patient presents to the ER with complaints of sore throat and body aches that began last week. States he has been taking tylenol for pain without relief, states he went to [facility] and was diagnosed with a viral infection. PMHx: none Awake, alert, oriented, resp reg unlabored, skin warm and dry, color appropriate for race, moves all ext without difficulty, amb without assistance. Appears in no distress. Marely Aguilar RN [facility] 2024-03-15 16:14:00 [facility] Emergency Department Note Patient Name: Carson Alvarenga Date of : 1960 63 year old male Treatment Room: Room/bed info not found Primary Care Physician: No primary care provider on file. Patient Escorted by: Self [9] Mode of Arrival: Personal means [1] EMS Treatment Prior to ED Arrival: Travel and Exposure Screening: Symptoms Does patient have any of these symptoms?: (not recorded) Exposure Screening Has patient had contact with someone with a communicable disease in the last month?: (not recorded) Diseases exposed to:: (not recorded) Is Patient ?: (not recorded) Exposure Date: (not recorded) Chief Complaint: No chief complaint on file. History of Present Illness: Pt here today with sore throat body aches runny nose cough cold and congestion, has been dealing with this for 8 days. Went to [facility] an ddx with Vrial Syndrome, pt still feeling ill Has drainage has cough has malaise, pt came her for second opinion Pt takes no meds, has no medical probems He states he is having fever chills and sputum at night, states he is coughing so much his throat hurts Past Medical History/Immunizations: History reviewed. No pertinent past medical history. Allergies: No Known Allergies Past Social History: Substance & Sexual Activity No substance use or sexual activity history on file. Past Surgical History: History reviewed. No pertinent surgical history. Review of Systems: Review of Systems Constitutional: Positive for chills and fatigue. HENT: Positive for congestion and rhinorrhea. Eyes: Negative. Genitourinary: Negative. All other systems reviewed and are negative. Physical Exam: ED Triage Vitals Weight Actual or estimated Height BP Pulse Resp Temp Temp src SpO2 Measured on Physical Exam Vitals and nursing note reviewed. Constitutional: Appearance: He is normal weight. HENT: Head: Normocephalic. Right Ear: External ear normal. Left Ear: External ear normal. Nose: Nose normal. Mouth/Throat: Mouth: Mucous membranes are moist. Eyes: Pupils: Pupils are equal, round, and reactive to light. Cardiovascular: Rate and Rhythm: Normal rate and regular rhythm. Pulmonary: Effort: Pulmonary effort is normal. Breath sounds: Normal breath sounds. Abdominal: General: Abdomen is flat. Palpations: Abdomen is soft. Musculoskeletal: General: No swelling or deformity. Normal range of motion. Cervical back: Normal range of motion. Skin: General: Skin is warm. Capillary Refill: Capillary refill takes less than 2 seconds. Neurological: General: No focal deficit present. Mental Status: He is alert and oriented to person, place, and time. Radiology: No orders to display Lab Results: Lab Results - No data to display EKG: If EKG completed, see Procedure Note. Orders and Treatments: No orders of the defined types were placed in this encounter. No orders of the defined types were placed in this encounter. First Provider Eval: ED Events Date/Time Event User Comments 03/15/24 1617 Medical Screening Begins MARY ANNE BELLO MD T -- 03/15/24 1617 First Provider Evaluation MARY ANNE BELLO MD -- ED COURSE Diagnosis/Impression as of 03/15/24 1810 Acute cough Bronchitis Procedures: Procedures MDM: Medical Decision Making Pt here today with sore throat body aches runny nose cough cold and congestion, has been dealing with this for 8 days. Went to [facility] an [facility]dx with Vrial Syndrome, pt still feeling ill Has drainage has cough has malaise, pt came her for second opinion Pt takes no meds, has no medical probems Ddx covid flu rsv enteritis pneumonia bronchitis sinusitis Pt has normal oxygen, has wet cough, No covid/strep Pt feeling better Meds given Pt has bronchitis, given it has been going on for 8 days will rx med No wheezing so no steroids Problems Addressed: Acute cough: Details: Vial panel xray and abx Bronchitis: acute illness or injury Details: Cxr, viral panel Amount and/or Complexity of Data Reviewed Labs: ordered. Details: Recent Results (from the past 24 hour(s)) -Rapid Strep Screen For Group A: Collection Time: 03/15/24 5:03 PM Specimen: THROAT; Swab Result Value Ref Range Molecular Strep Negative Negative -Influenza A B RSV COVID NAAT: Collection Time: 03/15/24 5:03 PM Specimen: NASOPHARYNGEAL SWAB Result Value Ref Range Influenza A NAAT Negative Negative Influenza B NAAT Negative Negative RSV by PCR Negative Negative SARS-CoV-2 NAAT Negative Negative Radiology: ordered. Details: Perihilar/bronchiol infiltrate Risk Prescription drug management. Flowsheet Documentation: Scoring Tools: No data recorded Disposition/Condition: ED Disposition None Discharge Medications: Patient's Medications No medications on file Follow-up: Electronically signed by: Mary Anne Bello MD 03/15/241818 [facility]2024-02-21 00:00:00 [facility]
--- NOTE | 2024-08-30 20:18 | EDPHYS ---
Physician Documentation [facility] Name: Carson Alvarenga Sr Age: 63 yrs Sex: Male : 1960 Arrival Date: 08/30/2024 Time: 19:27 Bed 2 Private MD: ED Physician Jarred Franco HPI: 08/30 20:02 This 63 yrs old Male presents to ER via Ambulatory with complaints of Leg Pain.sp4 20:21 Patient presents with left buttock pain starting Monday 3 days ago. Pain radiates into sp4 the left foot. Denied back pain. . Historical: - Allergies: 19:44 No Known Allergies; tm6 - PMHx: 19:44 Diabetes - NIDDM; tm6 - PSHx: 19:44 Appendectomy; Cholecystectomy; tm6 - Immunization history:: Flu vaccine is up to date. - Infectious Disease History:: Denies. - Social history:: Smoking status: Patient denies any tobacco usage or history of. Patient uses alcohol, occasionally. - Family history:: not pertinent. ROS: 20:21 Constitutional: Negative for fever, chills, and weight loss, Positive left buttock sp4 pain 20:21 All other systems are negative, Exam: 20:21 Constitutional: This is a well developed, well nourished patient who is awake, alert, sp4 and in no acute distress. Head/Face: Normocephalic, atraumatic. Eyes: Pupils equal round and reactive to light, extra-ocular motions intact. Lids and lashes normal. Conjunctiva and sclera are not injected. Cornea within normal limits. Periorbital areas with no swelling, redness, or edema. ENT: Nares patent. No nasal discharge, no septal abnormalities noted. Tympanic membranes are normal and external auditory canals are clear. Oropharynx with no redness, swelling, or masses, exudates, or evidence of obstruction, uvula midline. Mucous membranes moist. Neck: Trachea midline, no thyromegaly or masses palpated, and no cervical lymphadenopathy. Supple, full range of motion without nuchal rigidity, or vertebral point tenderness. Chest/axilla: Normal chest wall appearance and motion. Nontender with no deformity. No lesions are appreciated. Cardiovascular: Regular rate and rhythm with a normal S1 and S2. No gallops, murmurs, or rubs. Normal PMI, no JVD. No pulse deficits. Respiratory: Lungs have equal breath sounds bilaterally, clear to auscultation and percussion. No rales, rhonchi or wheezes noted. No increased work of breathing, no retractions or nasal flaring. Abdomen/GI: Soft, with normal bowel sounds. No distension or tympany. No guarding or rebound. No evidence of tenderness throughout. Back: No spinal tenderness. No costovertebral tenderness. Skin: Warm, dry with normal turgor. Normal color with no rashes, no lesions, and no evidence of cellulitis. MS/ Extremity: Pulses equal, no cyanosis. Neurovascular intact. Full, normal range of motion. Neuro: Awake and alert, GCS 15, oriented to person, place, time, and situation. Cranial nerves II-XII grossly intact. Motor strength 5/5 in all extremities. Sensory grossly intact. Psych: Awake, alert, with orientation to person, place and time. Behavior, mood, and affect are within normal limits Vital Signs: 19:44 BP 123 / 80; Pulse 61; Resp 18; Temp 97.7(O); Pulse Ox 100% on R/A; MAP 94 mmHg; Weight tm6 89.81 kg; Height 5 ft. 8 in. ; Pain 6/10; 20:36 BP 127 / 79; Pulse 64; Resp 17 S; Pulse Ox 100% on R/A; lg3 19:44 Body Mass Index 30.11 (89.81 kg, 172.72 cm) tm6 19:44 Pain Scale: Adult tm6 Dawna Coma Score: 20:21 Eye Response: spontaneous(4). Motor Response: obeys commands(6). Verbal Response: sp4 oriented(5). Total: 15. MDM: 20:05 Medical Screening Exam initiated sp4 20:21 Differential diagnosis: closed fracture, contusion, abrasion, tendonitis. Data sp4 reviewed: vital signs, nurses notes, old medical records. ED course: Patient has clear signs of sciatica. Left sciatica was discussed with patient in detail. patient is stable for discharge home. . Administered Medications: 20:36 Drug: predniSONE PO 60 mg PO once Route: PO; lg3 20:45 Follow up: Response: No adverse reaction; Medication administered at discharge. lg3 20:36 Drug: traMADol PO 100 mg PO once Route: PO; lg3 20:45 Follow up: Response: No adverse reaction; Medication administered at discharge. lg3 20:36 Drug: Ondansetron PO 4 mg PO once Route: PO; lg3 20:45 Follow up: Response: No adverse reaction; Medication administered at discharge. lg3 20:36 Drug: Methocarbamol PO 750 mg PO once Route: PO; lg3 20:45 Follow up: Response: No adverse reaction; Medication administered at discharge. lg3 20:36 Drug: Ketorolac IM 60 mg IM once Route: IM; Site: left gluteus; lg3 20:45 Follow up: Response: No adverse reaction; Medication administered at discharge. lg3 Disposition Summary: 08/30/24 20:18 Discharge Ordered Notes: Location: Home sp4 Problem: new sp4 Symptoms: have improved sp4 Condition: Stable sp4 Diagnosis - Sciatica, left side sp4 - Acute Left Sciatica sp4 Followup: sp4 - With: Private Physician - When: 7 - 10 days - Reason: Recheck today's complaints Discharge Instructions: - Discharge Summary Sheet sp4 - Sciatica, Hrsk-[id number] sp4 Forms: - Patient Portal Instructions sp4 Prescriptions: - naproxen 500 mg Oral tablet - take 1 tablet ORAL route every 12 hours PRN pain; 30 tablet; Refills: 0, sp4 Product Selection Permitted - Tramadol 50 mg Oral tablet - take 1 tablet ORAL route every 8 hours as needed; 20 tablet; Refills: 0, sp4 Product Selection Permitted - methocarbamol 750 mg Oral tablet - take 2 tablets ORAL route every 8 hours for 3 days PRN muscle soreness; 60 sp4 tablet; Refills: 0, Product Selection Permitted Signatures: Lanie Ruiz RN RN lg3 Jarred Franco MD MD sp4 Robin Sage RN RN tm6
--- NOTE | 2024-08-30 20:18 | ER ---
Nurse's Notes [facility] Name: Carson Alvarenga Sr Age: 63 yrs Sex: Male : 1960 Arrival Date: 08/30/2024 Time: 19:27 Bed 2 Private MD: Diagnosis: Sciatica, left side;Acute Left Sciatica Presentation: 08/30 19:43 Chief complaint: Patient states: left hip and leg started to hurt on Monday afternoon. tm6 No fall or strain. Pain has gotten worse. Coronavirus screen: Client denies travel out of the [place] in the last 14 days. Ebola Screen: Patient negative for fever greater than or equal to 101.5 degrees Fahrenheit, and additional compatible Ebola Virus Disease symptoms Patient denies exposure to infectious person. Patient denies travel to an Ebola-affected area in the 21 days before illness onset. No symptoms or risks identified at this time. Risk Assessment: Do you want to hurt yourself or someone else? Patient reports no desire to harm self or others. Onset of symptoms was August 25, 2024. 19:43 Method Of Arrival: Ambulatory tm6 19:43 Acuity: [place] 4 tm6 20:42 Initial Sepsis Screen: Does the patient meet any 2 criteria? No. Patient's initial lg3 sepsis screen is negative. Does the patient have a suspected source of infection? No. Patient's initial sepsis screen is negative. Triage Assessment: 19:47 General: Appears in no apparent distress. Behavior is calm, cooperative. Pain: tm6 Complains of pain in left hip and left leg Pain currently is 6 out of 10 on a pain scale. Pain began Monday. EENT: No signs and/or symptoms were reported regarding the EENT system. Neuro: Level of Consciousness is awake, alert, obeys commands, Oriented to person, place, time, situation. Cardiovascular: Patient's skin is warm and dry. Respiratory: Airway is patent Respiratory effort is even, unlabored, Respiratory pattern is regular, symmetrical. GI: No signs and/or symptoms were reported involving the gastrointestinal system. Abdomen is round non-distended. : No signs and/or symptoms were reported regarding the genitourinary system. Derm: No signs and/or symptoms reported regarding the dermatologic system. Musculoskeletal: Reports pain in left hip and left leg since Monday. Pain is 6 out of 10 on a pain scale. Historical: - Allergies: 19:44 No Known Allergies; tm6 - PMHx: 19:44 Diabetes - NIDDM; tm6 - PSHx: 19:44 Appendectomy; Cholecystectomy; tm6 - Immunization history:: Flu vaccine is up to date. - Infectious Disease History:: Denies. - Social history:: Smoking status: Patient denies any tobacco usage or history of. Patient uses alcohol, occasionally. - Family history:: not pertinent. Screenin:11 [facility] ED Fall Risk Assessment (Adult) History of falling in the last 3 months, lg3 including since admission No falls in past 3 months (0 pts) Confusion or Disorientation No (0 pts) Intoxicated or Sedated No (0 pts) Impaired Gait No (0 pts) Mobility Assist Device Used No (0 pt) Altered Elimination No (0 pt) Score/Fall Risk Level 0 - 2 = Low Risk Oriented to surroundings, Maintained a safe environment, Educated pt \T\ family on fall prevention, incl call for assistance when getting out of bed, Assessed \T\ reinforced patient's understanding of fall precautions. Abuse screen: Denies threats or abuse. Denies injuries from another. Nutritional screening: No deficits noted. Tuberculosis screening: No symptoms or risk factors identified. Assessment: 20:11 General: Appears in no apparent distress. comfortable, Behavior is calm, cooperative. lg3 Pain: Complains of pain in left hip Pain radiates to left leg Pain currently is 5 out of 10 on a pain scale. Neuro: No deficits noted. Christianson Agitation-Sedation Scale (RASS): 0 - Alert and Calm Level of Consciousness is awake, alert, obeys commands, Oriented to person, place, time, situation. Cardiovascular: No deficits noted. Denies chest pain, shortness of breath, Capillary refill < 3 seconds Clubbing of nail beds is absent JVD is absent Patient's skin is warm and dry. Respiratory: No deficits noted. Airway is patent Respiratory effort is even, unlabored, Respiratory pattern is regular, symmetrical. GI: No deficits noted. No signs and/or symptoms were reported involving the gastrointestinal system. Abdomen is round non-distended. : No signs and/or symptoms were reported regarding the genitourinary system. EENT: No deficits noted. No signs and/or symptoms were reported regarding the EENT system. Derm: No deficits noted. No signs and/or symptoms reported regarding the dermatologic system. Skin is intact, is healthy with good turgor, Skin is dry, Skin is normal, Skin temperature is warm. Musculoskeletal: Circulation, motion, and sensation intact. Range of motion: intact in all extremities, Reports pain in left leg. 20:36 Reassessment: Patient appears in no apparent distress at this time. No changes from lg3 previously documented assessment. Patient and/or family updated on plan of care and expected duration. Pain level reassessed. Patient is alert, oriented x 3, equal unlabored respirations, skin warm/dry/pink. Vital Signs: 19:44 BP 123 / 80; Pulse 61; Resp 18; Temp 97.7(O); Pulse Ox 100% on R/A; MAP 94 mmHg; Weight tm6 89.81 kg; Height 5 ft. 8 in. ; Pain 6/10; 20:36 BP 127 / 79; Pulse 64; Resp 17 S; Pulse Ox 100% on R/A; lg3 19:44 Body Mass Index 30.11 (89.81 kg, 172.72 cm) tm6 19:44 Pain Scale: Adult tm6 Dawna Coma Score: 20:21 Eye Response: spontaneous(4). Motor Response: obeys commands(6). Verbal Response: sp4 oriented(5). Total: 15. ED Course: 19:31 Patient arrived in ED. mr 19:44 Triage completed. tm6 19:44 Arm band placed on left wrist. tm6 20:02 Jarred Franco MD is Attending Physician. sp4 20:11 Lanie Ruiz RN is Primary Nurse. lg3 20:11 Patient has correct armband on for positive identification. Placed in gown. Bed in low lg3 position. Call light in reach. Side rails up X 1. Client placed on continuous cardiac and pulse oximetry monitoring. NIBP monitoring applied. Door closed. Noise minimized. Warm blanket given. Pillow given. Family accompanied patient. 20:41 No provider procedures requiring assistance completed. Patient did not have IV access lg3 during this emergency room visit. Administered Medications: 20:36 Drug: predniSONE PO 60 mg PO once Route: PO; lg3 20:45 Follow up: Response: No adverse reaction; Medication administered at discharge. lg3 20:36 Drug: traMADol PO 100 mg PO once Route: PO; lg3 20:45 Follow up: Response: No adverse reaction; Medication administered at discharge. lg3 20:36 Drug: Ondansetron PO 4 mg PO once Route: PO; lg3 20:45 Follow up: Response: No adverse reaction; Medication administered at discharge. lg3 20:36 Drug: Methocarbamol PO 750 mg PO once Route: PO; lg3 20:45 Follow up: Response: No adverse reaction; Medication administered at discharge. lg3 20:36 Drug: Ketorolac IM 60 mg IM once Route: IM; Site: left gluteus; lg3 20:45 Follow up: Response: No adverse reaction; Medication administered at discharge. lg3 Medication: 20:42 VIS not applicable for this client. lg3 Outcome: 20:18 Discharge ordered by . sp4 20:41 Discharged to home ambulatory, lg3 20:41 Condition: stable 20:41 Discharge instructions given to patient, Instructed on discharge instructions, follow up and referral plans. Demonstrated understanding of instructions, follow-up care, medications, Prescriptions given X 3, 20:44 Patient left the ED. lg3 Signatures: Radha Aguilar, Reg Reg Lanie Jimenez, RN RN lg3 Jarred Franco MD MD sp4 Robin Sage RN RN tm6
[2024-08-30] MEDS ORDERED: methocarbamoL 750 MG TAB ONE (20:30)
[2024-08-30] MEDS ORDERED: predniSONE 20 MG TAB ONE (20:30)
[2024-08-30] MEDS ORDERED: KETOROLAC 30 MG/ML INJ ONE (20:30)
[2024-08-30] MEDS ORDERED: TRAMADOL HCL 50 MG TAB ONE (20:31)
[2024-08-30] MEDS ORDERED: ONDANSETRON 4 MG (ODT) TAB ONE (20:31)
[2024-08-31 00:54] VITALS: TEMP 97.7; O2SAT 100
[2024-08-31 00:55] VITALS: BP 127/79
== END 2024-08-30 20:44 | disposition home or self-care (01) ==
LOC: ER 19:27
DX: M54.32 Sciatica, left side (principal)
CPT/HCPCS: 96372; 99284; J7512; Q0162